=== PATIENT | female | born 1990 | race Caucasian/White ===

== ENCOUNTER 2017-09-23 21:33 | Outpatient (CLI) | payer OTHER, SELFPAY ==
[2017-09-23 22:11] VITALS: BMI 30.4
--- NOTE | 2017-09-29 05:50 | OB.TRI.NOTE ---
History of Present Illness Reason For Visit: R/O LABOR Date of Service: 09/23/17 Gestational age: 38 History of Present Illness: co ctx regualrly for severa lhours and pressure Home Medications Medication Instructions Recorded 1 tab PO QDAY 07/29/17 vitamin,calcium,qfffcido-qacb-tovqi acid tablet Allergies penicillin G Allergy (Mild, Verified 09/23/17 11:01) Hives NST - FHR Rate Baby A Baseline: 150 Variability:: Moderate Accelerations:: 15 x 15 Decelerations:: None NST Reactive:: Yes FHR Category:: Category I Uterine Activity:: ctx q6-8 Impression/Plan no cervical change, dc home labor precautions
== END 2017-09-24 00:10 | disposition home or self-care (01) ==
LOC: WPOUT 22:03 → WP 22:04
PROVIDERS: Family Provider Family Medicine; PCP Family Medicine; Visit Provider Obstetrics & Gynecology
DX: Z34.93 Encounter for supervision of normal pregnancy, unspecified, third trimester (principal)
CPT/HCPCS: 59025; 59050; 99218; G0378

== ENCOUNTER 2017-09-24 06:07 | Inpatient (IN) | payer OTHER, SELFPAY ==
[2017-09-24] MEDS: Lactated Ringers 1,000 ML 50 ML IV ×3 (06:30→12:26)
[2017-09-24 06:31] VITALS: BMI 30.4
[2017-09-24 06:48] LABS: Hematocrit 38.4 % (37-47); Hemoglobin 13.4 g/dl (12.0-15.0); Mean Corp Hgb Conc 34.9 g/gl (32-36); Mean Corpuscular Hgb 30.9 pg (27.0-32.0); Mean Corpuscular Volume 88.5 fL (81-99); Mean Platelet Vol. 9.4 fl (6.2-12.0); Platelet Count 201 K/mm3 (150-450); RBC Distribution Width CV 12.9 % (11.6-14.6); RBC Distribution Width SD 40.6 fl (35.1-43.9); Red Blood Count 4.34 M/mm3 (4.2-5.4); White Blood Count 20.2 K/mm3 (4.4-11.0)
[2017-09-24 06:49] LABS: Scan Indicated on CBC? Y/N NO
--- NOTE | 2017-09-24 14:22 | PCM.HP.OB ---
(1) Active labor at term Status: Acute (2) Large for gestational age fetus affecting management of mother, antepartum Status: Acute Qualifiers: Comment: 95%ile- discussed IOL at 39 weeks and criteria for primary cs. negative diabetes testing. (3) Late care affecting Status: Acute Qualifiers: Comment: first visit at 16 weeks, fu growth US consistent (4) Supervision of normal Status: Acute Qualifiers: Comment: DEVIN 10/04/17 boy Yoan Sukhjinder History Date of Admission: 09/24/17 Gestational age: 38.4 History of this : 26 yo @ 38w4d presents IAL. she has had a complicated by late care and large for gestational age Pertinent Past Medical History: see problem list and history tab- reviewed and no changes needed. labs: see attached lab section Allergies penicillin G Allergy (Mild, Verified 09/23/17 11:01) Hives Current Medications Acetaminophen (Tylenol) 325 - 650 mg PO Q4H PRN PRN PRN Reason: PAIN OR FEVER >100.4F Al Hydroxide/Mg Hydroxide (Mylanta Ii) 15 - 30 ml PO Q4H PRN PRN PRN Reason: INDIGESTION Citric Acid/Sodium Citrate (Bicitra) 30 ml PO UD PRN Lactated Ringer's () 1,000 mls @ 50 mls/hr IV .Q20H VERA Last Admin: 09/24/17 12:26 Dose: 50 mls/hr Naloxone HCl 4 mg/ Dextrose 504 mls @ 0 mls/hr IV PRN PRN; Protocol PRN Reason: TO MAINTAIN RR>10 Nalbuphine HCl (Nubain) 5 - 10 mg IV Q3H PRN PRN PRN Reason: PAIN (4-10/10) Nalbuphine HCl (Nubain) 5 mg IV Q3H PRN PRN Reason: ITCHING Stop: 09/25/17 12:49 Naloxone HCl (Narcan) 0.2 mg IV Q1M PRN PRN Reason: RR<10 AND PT UNRESPONSIVE Stop: 09/25/17 12:49 Ondansetron HCl (Zofran) 4 mg IV Q8H PRN PRN PRN Reason: NAUSEA Promethazine HCl (Phenergan (Ll)) 6.25 - 12.5 mg IV Q4H PRN PRN; Protocol PRN Reason: IF NAUSEA PERSISTS Sodium Chloride () 5 - 15 ml IV UD VERA Last Admin: 09/24/17 07:27 Dose: Not Given Smoking Status: Never smoker Alcohol: None Drug Use: none Number of Fetus(es): 1 - 130-140 moderate variability reactive no decels Review of Systems Constitutional: Denies: Chills, Fever, Weight Change HEENT: Denies: Head Aches, Sinus Congestion, Sinus Drainage Cardiovascular: Denies: Chest Pain, Palpitations Respiratory: Denies: Cough, Shortness of breath at rest, Sputum production Gastrointestinal: Reports: Abdominal Pain. Denies: Nausea, Vomiting Genitourinary: Denies: Dysuria Musculoskeletal: Denies: Joint Pain, Joint Tenderness Skin: Denies: Rash, Wounds Neurological: Denies: Numbness, Tingling, Focal weakness Psychiatric: Denies: Anxiety, Depression, Homicidal Ideations, Suicidal Ideations Hematologic/ Lymphatic: Denies: Easy Bruising, Easy Bleeding Physical Exam General: Alert, Oriented x3 Cardiovascular: Regular rate Lungs: Normal air movement Abdomen: Soft, Gravid Estimated gestational size: Large for gestational age Presentation: Cephalic Cervix Dilation (cm): 5.5 Station: -1 Effacement (%): 80 Assessment/Plan Active and Suspected Problems (Last Reviewed 09/23/17 @ 11:01 by Regina Barker) Active labor at term (Acute) @ 38w4d IAL LGA late care gbs neg plan expectant managment and epi PRN
[2017-09-24] MEDS: Ondansetron 4 MG/2 ML Vial IV (14:23)
--- NOTE | 2017-09-24 14:25 | PCM.PN.BLA ---
Progress Note patient complete and pushing, moderate meconium, fht 120-140 min-moderate variability having early decels and intermittent variable decel, occasional late. category II tracing- overall reassuring and making progress will continue pusing
[2017-09-24] MEDS: Oxytocin 30 units/NS 500 ml 30 UNITS/500 ML IV.SOLN 334 UNITS IV (15:51)
--- NOTE | 2017-09-24 16:12 | PCM.OB.VAG ---
(1) Active labor at term Status: Acute (2) Large for gestational age fetus affecting management of mother, antepartum Status: Acute Qualifiers: Comment: 95%ile- discussed IOL at 39 weeks and criteria for primary cs. negative diabetes testing. (3) Late care affecting Status: Acute Qualifiers: Comment: first visit at 16 weeks, fu growth US consistent (4) Supervision of normal Status: Acute Qualifiers: Comment: DEVIN 10/04/17 boy Yoan Sukhjinder Vaginal Delivery Maternal Presentation: Active Labor 26-year-old at 38-/10 in active labor Amniotic Membrane Rupture Type: Artificial Amniotic Fluid Description: Moderate meconium Final DEVIN: 10/04/17 Final DEVIN Source: US >20 weeks Gestational age: 38 Weeks and 4 Days Date of Procedure: 09/24/17 Pre-Operative Diagnosis: In active labor Post-Operative Diagnosis: Same Surgery/ Procedure Performed: Spontaneous Vaginal Delivery Type of Anesthesia: Epidural Description of Procedure: Patient began pushing and delivered the head in the SYLVIA presentation. The head was delivered atraumatically . The anterior and posterior shoulders delivered without complication followed by the rest of the and the was placed on the maternal abdomen. Delayed cord clamping was employed for approximately 60 seconds. Cord was clamped and cut and gentle traction was applied to the cord and the placenta delivered spontaneously immediately following it was noted to be intact with three-vessel cord. The perineum and vagina were inspected and noted to have a small first-degree laceration that was repaired in the usual fashion with 3-0 Vicryl repeat. EBL was 100 cc. Patient and infant tolerated delivery well. Presentation: SYLVIA
[2017-09-24] MEDS: Oxytocin 30 units/NS 500 ml 30 UNITS/500 ML IV.SOLN 167 UNITS IV (16:25)
[2017-09-24] MEDS: 0.9% Saline Lock 10 ML Syringe IV (17:13)
[2017-09-24 18:27] VITALS: BP 120/60; PULSE 139; RESP 18; TEMP 36.8; O2SAT 100
[2017-09-24 20:50] VITALS: BP 119/74; PULSE 125; RESP 18; TEMP 36.6; O2SAT 100
[2017-09-24 23:40] VITALS: BP 110/63; PULSE 128; RESP 18; TEMP 36.8; TEMP 36.9; O2SAT 97
[2017-09-24] MEDS: Naproxen 250 MG Tablet PO (23:54)
--- NOTE | 2017-09-25 00:09 | NURSING ---
Called Dr. Almanzar and notified pts hr-125 at 1930 and hr-128 with 2345 assessment. pt c/o fever and chills at 2345, temporal temp=98.4, oral temp was 98.2. bp wnl, bleeding is appropriate. Pulse ox ranges 97-100%. encouraged pt to drink more oral fluids. MD states to draw a stat hgb now. if HR remains over 130 then get an EKG.
[2017-09-25 00:29] LABS: Hemoglobin 10.9 g/dl (12.0-15.0)
[2017-09-25 03:45] VITALS: BP 106/62; PULSE 110; RESP 16; TEMP 36.3; O2SAT 97
--- NOTE | 2017-09-25 05:34 | PCM.DCVAG ---
Additional Instructions: If you experience any of the following, contact your healthcare provider. Bleeding that soaks a pad every hour for 2 hours Fever 100.4 or higher Unrelieved incision or abdominal pain Swelling, redness, discharge or bleeding from your incision or episiotomy site Your incision begins to separate Problems urinating (including inability to urinate or burning while urinating). Visual changes Severe headache Flu-like symptoms Pain or redness in one of both of your breasts Pain, warmth, tenderness or swelling in your legs, especially the calf area Frequent nausea and vomiting Symptoms of depression or anxiety If you experience any of the following, call 911 or go to the nearest Emergency Room. Chest pain Problems breathing Seizure activity Partial or complete paralysis of a body part, slurred speech, weakness or drooping of the face, or a sudden inability to walk or hold your balance Allergies/Adverse Reactions: Allergies penicillin G Allergy (Mild, Verified 09/23/17 11:01) Hives Medications to take at Discharge vitamin,calcium,avjkanwn-uouq-lflor acid tablet 1 tab PO QDAY 07/29/17 Please Follow Up With: Cadence Almanzar MD - [phone] When: Call to make an appointment with your doctor in 6 weeks. If you had elevated Blood pressure or 4th degree laceration you will need to be seen in 2 weeks. Primary Care Physician: Clarence Sharif MD [Primary Care Provider] -
--- NOTE | 2017-09-25 05:35 | DCINST_ITS ---
Additional Instructions: If you experience any of the following, contact your healthcare provider. * Bleeding that soaks a pad every hour for 2 hours * Fever 100.4 or higher * Unrelieved incision or abdominal pain * Swelling, redness, discharge or bleeding from your incision or episiotomy site * Your incision begins to separate * Problems urinating (including inability to urinate or burning while urinating) . * Visual changes * Severe headache * Flu-like symptoms * Pain or redness in one of both of your breasts * Pain, warmth, tenderness or swelling in your legs, especially the calf area * Frequent nausea and vomiting * Symptoms of depression or anxiety If you experience any of the following, call 911 or go to the nearest Emergency Room. * Chest pain * Problems breathing * Seizure activity * Partial or complete paralysis of a body part, slurred speech, weakness or drooping of the face, or a sudden inability to walk or hold your balance Allergies/Adverse Reactions: Allergies penicillin G Allergy (Mild, Verified 09/23/17 11:01) Hives Medications to take at Discharge vitamin,calcium,npfatuwi-awvx-zoefx acid tablet 1 tab PO QDAY 07/29/17 Please Follow Up With: Cadence Almanzar MD - [phone] When: Call to make an appointment with your doctor in 6 weeks. If you had elevated Blood pressure or 4th degree laceration you will need to be seen in 2 weeks. Primary Care Physician: Clarence Sharif MD [Primary Care Provider] -
[2017-09-25 08:11] VITALS: BP 108/66; PULSE 101; RESP 14; TEMP 36.5
--- NOTE | 2017-09-25 09:44 | PCM.PN.OB ---
Patient Problems: Active and Suspected Problems (Last Reviewed 09/23/17 @ 11:01 by Regina Barker) Active labor at term (Acute) Subjective: doing well no CP SOB N V - Physical Exam General: Alert, Oriented x3 Vital Signs Temp Pulse Resp BP Pulse Ox 97.7 F L 101 H 14 108/66 97 09/25/17 08:11 09/25/17 08:11 09/25/17 08:11 09/25/17 08:11 09/25/17 03:45 Oxygen Delivery Method Room Air Weight: 194 lb 3.636 oz Body Mass Index (BMI) 30.4 Intake and Output for Last 24 Hours 09/23/17 09/24/17 09/25/17 23:59 23:59 23:59 Intake Total 3798 / 3798 Output Total 3400 / 3400 Balance 398 / 398 Laboratory Tests Past 24 Hrs 09/25/17 00:15 Hgb 10.9 L Assessment/Plan Active and Suspected Problems (Last Reviewed 09/23/17 @ 11:01 by Regina Barker) Active labor at term (Acute) s/p routine care doing well
[2017-09-25] MEDS: Prenatal Vits Tablet 1 TABLET PO (11:03)
[2017-09-25 11:08] VITALS: BP 109/62; PULSE 110; RESP 18; TEMP 36.3
[2017-09-25 16:30] VITALS: BP 121/70; PULSE 115; RESP 14; TEMP 36.7
[2017-09-25 19:55] VITALS: BP 110/68; PULSE 97; RESP 18; TEMP 36.6; O2SAT 97
[2017-09-26 03:00] VITALS: BP 119/78; PULSE 103; RESP 18; TEMP 36.6; O2SAT 98
[2017-09-26] MEDS: Naproxen 250 MG Tablet PO (03:42)
[2017-09-26] MEDS: Senna/Docusate Sodium 1 Tablet PO (03:43)
[2017-09-26 08:53] VITALS: BP 109/65; PULSE 104; RESP 16; TEMP 36.6
--- NOTE | 2017-09-26 09:22 | PCM.PN.OB ---
Patient Problems: Active and Suspected Problems (Last Reviewed 09/23/17 @ 11:01 by Regina Barker) Active labor at term (Acute) Subjective: doing well no complaints - Physical Exam General: Alert, Oriented x3 Vital Signs Temp Pulse Resp BP Pulse Ox 97.8 F 104 H 16 109/65 98 09/26/17 08:53 09/26/17 08:53 09/26/17 08:53 09/26/17 08:53 09/26/17 03:00 Oxygen Delivery Method Room Air Weight: 194 lb 3.636 oz Body Mass Index (BMI) 30.4 Intake and Output for Last 24 Hours 09/24/17 09/25/17 09/26/17 23:59 23:59 23:59 Intake Total 3798 / 3798 Output Total 3400 / 3400 Balance 398 / 398 Assessment/Plan Active and Suspected Problems (Last Reviewed 09/23/17 @ 11:01 by Regina Barker) Active labor at term (Acute) s/p routine care doing well
--- NOTE | 2017-09-26 09:23 | PCM.DCVAG ---
Discharge Diet: No Restrictions Discharge Activity: Return to Normal Activity May resume sexual activity in: 6-8 weeks Weight Bearing Status: Full weight bearing Call your doctor if you observe: Fever of 101 or Higher, Shortness of breath, Chest pain Additional Instructions: If you experience any of the following, contact your healthcare provider. Bleeding that soaks a pad every hour for 2 hours Fever 100.4 or higher Unrelieved incision or abdominal pain Swelling, redness, discharge or bleeding from your incision or episiotomy site Your incision begins to separate Problems urinating (including inability to urinate or burning while urinating). Visual changes Severe headache Flu-like symptoms Pain or redness in one of both of your breasts Pain, warmth, tenderness or swelling in your legs, especially the calf area Frequent nausea and vomiting Symptoms of depression or anxiety If you experience any of the following, call 911 or go to the nearest Emergency Room. Chest pain Problems breathing Seizure activity Partial or complete paralysis of a body part, slurred speech, weakness or drooping of the face, or a sudden inability to walk or hold your balance Allergies/Adverse Reactions: Allergies penicillin G Allergy (Mild, Verified 09/23/17 11:01) Hives Medications to take at Discharge vitamin,calcium,dqufcxlp-guif-kkncc acid tablet 1 tab PO QDAY 07/29/17 Orders to be completed after discharge: Electric breast pump Location: None Selected Please Follow Up With: Cadence Almanzar MD - [phone] When: Call to make an appointment with your doctor in 6 weeks. If you had elevated Blood pressure or 4th degree laceration you will need to be seen in 2 weeks. Primary Care Physician: Clarence Sharif MD [Primary Care Provider] -
--- NOTE | 2017-09-26 09:26 | DCINST_ITS ---
Discharge Diet: No Restrictions Discharge Activity: Return to Normal Activity May resume sexual activity in: 6-8 weeks Weight Bearing Status: Full weight bearing Call your doctor if you observe: Fever of 101 or Higher, Shortness of breath, Chest pain Additional Instructions: If you experience any of the following, contact your healthcare provider. * Bleeding that soaks a pad every hour for 2 hours * Fever 100.4 or higher * Unrelieved incision or abdominal pain * Swelling, redness, discharge or bleeding from your incision or episiotomy site * Your incision begins to separate * Problems urinating (including inability to urinate or burning while urinating) . * Visual changes * Severe headache * Flu-like symptoms * Pain or redness in one of both of your breasts * Pain, warmth, tenderness or swelling in your legs, especially the calf area * Frequent nausea and vomiting * Symptoms of depression or anxiety If you experience any of the following, call 911 or go to the nearest Emergency Room. * Chest pain * Problems breathing * Seizure activity * Partial or complete paralysis of a body part, slurred speech, weakness or drooping of the face, or a sudden inability to walk or hold your balance Allergies/Adverse Reactions: Allergies penicillin G Allergy (Mild, Verified 09/23/17 11:01) Hives Medications to take at Discharge vitamin,calcium,ptiwidwl-kqle-gujah acid tablet 1 tab PO QDAY 07/29/17 Orders to be completed after discharge: Electric breast pump Location: None Selected Please Follow Up With: Cadence Almanzar MD - [phone] When: Call to make an appointment with your doctor in 6 weeks. If you had elevated Blood pressure or 4th degree laceration you will need to be seen in 2 weeks. Primary Care Physician: Clarence Sharif MD [Primary Care Provider] -
[2017-09-26 12:00] VITALS: BP 95/68; PULSE 94; RESP 16; TEMP 36.8
== END 2017-09-26 14:05 | disposition home or self-care (01) | DRG 775 ==
PROVIDERS: Admitting Provider Obstetrics & Gynecology; Family Provider Family Medicine; PCP Family Medicine; Visit Provider Obstetrics & Gynecology
DX: O76 Abnormality in fetal heart rate and rhythm complicating labor and delivery (principal); O36.63X0 Maternal care for excessive fetal growth, third trimester, not applicable or unspecified; O70.0 First degree perineal laceration during delivery; Z37.0 Single live birth; Z3A.38 38 weeks gestation of pregnancy
CPT/HCPCS: 59050; 85018; 85027; 86850; 86900; 99218; J7120; A4216; G0378; J2405

== ENCOUNTER → 2018-04-30 08:36 | Outpatient (CLI) | payer OTHER, SELFPAY ==
[2018-04-30 10:47] LABS: Cholesterol 184 mg/dL (200); Glucose 94 mg/dL (74-106); High Density Lipoprotein 66 mg/dL; Triglycerides 52 mg/dL; Very Low Density Lipoprotein 10 mg/dL (5-40)
== END ==
PROVIDERS: Family Provider Family Medicine; PCP Family Medicine; Visit Provider Family Medicine
DX: Z00.00 Encounter for general adult medical examination without abnormal findings (principal)
CPT/HCPCS: 36415; 80061; 82947

== ENCOUNTER → 2019-04-09 08:34 | Outpatient (CLI) | payer OTHER, SELFPAY ==
[2017-11-05 10:26] VITALS: BMI 30.4
== END ==
PROVIDERS: Family Provider Family Medicine; PCP Family Medicine; Referring Provider Family Medicine; Visit Provider Family Medicine
DX: Z00.00 Encounter for general adult medical examination without abnormal findings (principal)

== ENCOUNTER → 2019-05-24 15:02 | Outpatient (CLI) | payer OTHER, SELFPAY ==
[2019-05-24 14:49] VITALS: BMI 30.4
[2019-05-24 21:07] LABS: hCG Titer Quant., Serum > 200000 mIU/mL (1-3)
== END ==
PROVIDERS: Family Provider Family Medicine; PCP Family Medicine; Referring Provider Obstetrics & Gynecology; Visit Provider Obstetrics & Gynecology
DX: Z34.80 Encounter for supervision of other normal pregnancy, unspecified trimester (principal)
CPT/HCPCS: 36415; 84702; 85025; 86592; 86703; 86762; 86850; 86900; 86901

== ENCOUNTER 2019-06-04 16:55 | Day surgery (SDC) | payer OTHER, SELFPAY ==
[2019-05-31 08:15] VITALS: BMI 30.4
[2019-06-04] VITALS (7 sets, daily range): BP systolic 106–161; BP diastolic 71–88; PULSE 75–112; RESP 14–16; TEMP 36.6–37.2; O2SAT 99–100; BMI 25.9
--- NOTE | 2019-06-04 07:45 | POC_PTH ---
PATIENT: MICAELA LANGFORD LOC: [facility] [place] U#:[id number] AGE/SX: 28/F ROOM: RE06/04/[address]: Dr. Cadence Almanzar MD : 1990 BED: DIS: 06/04/2019 SPEC #: [id number] RECD: 06/07/19 12:17 STATUS: SUZAN RENicole #: [id number] BINA: 06/04/19 07:[address]: Cadence Almanzar DEPT: SURGICAL PATHOLOGY RECD BY: Ozzie Oneal ENTERED: 06/07/19 13:33 SP TYPE: PROD CONC OTHR DR: Dr. Ronald Michael, DO Tissues: Product of conception, NOS Procedures: Surgery Specimen Level IV HEADER OPERATION: Dilation and curettage, suction PRE-OP DIAGNOSIS: Miscarriage TISSUE SUBMITTED: Products of conception, rule out molar MICROSCOPIC DIAGNOSIS Products of conception, D & C: [place]id[place], gestational endometrium and immature chorionic villi with extensive hydropic changes. See comment. NIKOLAI:jayde 06/09/19 COMMENT Significant trophoblastic hyperplasia is not seen. Correlation with clinical, laboratory studies and appropriate follow up are necessary. This case was reviewed and diagnosis discussed with Dr. Almanzar's nurse on 06/15/19 at 9:05 a.m. Case has been reviewed in consultation with Dr. Amador who concurs with the above diagnosis. IDC:AM MICROSCOPIC DESCRIPTION Slides are reviewed. GROSS DESCRIPTION Received in fixative is one container labeled with the patient's name and designated products of conception. The specimen consists of multiple irregular fragments of pink-red soft tissue that in aggregate measure 7.5 x 8 x 3.5 cm. tissue is not identified. Building Associate tissue is submitted in two cassettes. / NIKOLAI:jayde 06/07/19 More tissue is submitted in four more cassettes, 3-6. / NIKOLAI:jayde 06/08/19 TC:5 CPT: 06844
--- NOTE | 2019-06-04 18:11 | US_ITS ---
STUDY: FIRST TRIMESTER OBSTETRICAL ULTRASOUND REASON FOR EXAM: Female, 28 years old incomplete miscarriage, concern for partial molar LMP: 04/17/2019 TECHNIQUE: Transvaginal TECHNICAL QUALITY: Adequate. PRIOR ULTRASOUND: 09/08/2017 FINDINGS: There is no demonstrated intrauterine gestational sac. There is no demonstrated yolk sac. The placenta is non-visualized. There is no demonstrated embryo ( pole). The estimated gestation age (EGA) by LMP is 6 weeks, 6 days. The estimated date of delivery (DEVIN) by LMP is 12/26/2019. The uterus measures 9.8 x 9.2 x 6.3 cm.. There is no demonstrated uterine fibroid. The cervix is closed. There is a heterogeneous endometrial mass measuring 4.0 cm. No blood flow is seen within this structure. Multiple tiny cystic foci are seen within. Peripheral myometrial flow is noted. The right ovary measures 2.9 x 2.2 x 1.7 cm. There is no right ovarian cyst. There is no visualized right adnexal mass or complex lesion. The left ovary measures 2.1 x 2.1 x 1.1 cm.. There is no left ovarian cyst. There is no visualized left adnexal mass or complex lesion. There is minimal fluid in the cul de sac. US/Transvaginal w/Preg US IMPRESSION: Heterogeneous endometrial mass measuring 4.0 cm. No internal blood flow is noted. There is surrounding myometrial vascularity. 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 Correlation with beta hCG levels is recommended. Electronically Signed: Davis Rodas MD at 19:39 EDT , Service support ,
--- NOTE | 2019-06-04 18:14 | ED.DCSUM_ITS ---
History of Present Illness Chief Complaint: Vag Bleeding Informant: Patient Onset: Days Context: Gradual Onset Timing: Continuous Narrative: Patient is a 28-year-old female with [facility] 8 weeks status post 2 doses of Cytotec. Patient is presenting with continued bleeding and abdominal discomfort as well as abdominal bloating. Patient took her first dose of Cytotec 9 days ago. On repeat ultrasound she did pass the products of conception but still had a lot of clots in her uterus and a thickened uterine lining. She took a second dose of Cytotec 5 days ago. Since then patient has had continued bleeding approximately a pad every 3-4 hours with large clots. She is no she is having significant cramping in her lower abdomen and now feels bloated in her entire belly. She called her LOSS PREVENTION SUPERVISOR, Dr. Ronald Nick and was instructed to come to the emergency room for further evaluation. Patient has associated nausea but no vomiting. She denies any fever but does report chills. She has some slight lightheadedness. She denies any other complaints at this time. Chart review shows that patient Rh+. This was her second . Past Medical History - Allergies and Home Meds Allergies/Adverse Reactions: Allergies penicillin G Allergy (Mild, Verified 06/04/19 16:59) Hives Past Medical History: None Surgical History: noncontributory Smoking Status: Never smoker Review of Systems All systems negative except as indicated General: Reports: Chills Gastrointestinal: Reports: Abdominal pain, Nausea Genitourinary: Reports: - - Heavy vaginal bleeding, recent miscarriage Physical Exam Vital Signs/Narrative: Vital Signs Temp Pulse Resp BP Pulse Ox 06/04/19 17:24 89 14 127/83 H 100 06/04/19 16:56 99.0 F 112 H 16 161/84 H 100 Inital Vital Signs reviewed: Yes General: Well nourished, Well developed, No Acute Distress Head: Normocephalic, Atraumatic Eyes: Perrl, EOMI ENT: Moist mucous membranes, No rhinorrhea Neck: Supple, Nontender Cardiovascular: Regular rate, Regular rhythm, No murmurs Respiratory: No distress, CTA bilaterally, Chest nontender Abdomen: Soft, Nondistended, Normal bowel sounds, Tender - suprapubic . Negative for: Guarding, Rebound tenderness Back: Nontender, Normal Inspection Extremities: Nontender, No edema Skin: Normal color, No rash Neurological: Alert, Oriented x3, Cranial nerves II-XII grossly intact, Normal Strength, Normal Sensation Psychological: Normal affect, Normal Mood Diagnostic/Tx/Re-eval Clinical Impression(s) from Imaging Studies Obstetrics Ultrasound 06/04/19 18:11 IMPRESSION: Heterogeneous endometrial mass measuring 4.0 cm. No internal blood flow is noted. There is surrounding myometrial vascularity. 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 Correlation with beta hCG levels is recommended. Electronically Signed: Davis Rodas MD at 19:39 EDT , Service support , Laboratory Data 06/04/19 06/04/19 06/04/19 18:10 18:10 18:10 WBC 10.5 RBC 4.00 L Hgb 12.2 Hct 36.8 L MCV 92.0 MCH 30.5 MCHC 33.2 RDW Std Deviation 42.1 RDW Coeff of Ab 12.4 Plt Count 233 MPV 9.3 Immature Gran % (Auto) 0.400 Neut % (Auto) 77.0 H Lymph % (Auto) 14.1 L [place] % (Auto) 7.5 Eos % (Auto) 0.7 Baso % (Auto) 0.3 Absolute Neuts (auto) 8.1 H Absolute Lymphs (auto) 1.48 Nucleated RBC % 0 HCG, Quant 46040 H Serum , Qual Y Urine Color Urine Clarity Urine pH Ur Specific Randall Urine Protein Urine Glucose (UA) Urine Ketones Urine Occult Blood Urine Nitrite Urine Bilirubin Urine Urobilinogen Ur Leukocyte Esterase Urine RBC Urine WBC Ur Squamous Epith Cells Urine Bacteria Urine Mucus 06/04/19 18:20 WBC RBC Hgb Hct MCV MCH MCHC RDW Std Deviation RDW Coeff of Ab Plt Count MPV Immature Gran % (Auto) Neut % (Auto) Lymph % (Auto) [place] % (Auto) Eos % (Auto) Baso % (Auto) Absolute Neuts (auto) Absolute Lymphs (auto) Nucleated RBC % HCG, Quant Serum , Qual Urine Color Yellow Urine Clarity Clear Urine pH 6.5 Ur Specific Randall 1.020 Urine Protein 30 H Urine Glucose (UA) Normal Urine Ketones 5 H Urine Occult Blood 250 H Urine Nitrite Negative Urine Bilirubin Negative Urine Urobilinogen Normal Ur Leukocyte Esterase 500 H Urine RBC 0-5 SEEN Urine WBC 5-10 SEEN Ur Squamous Epith Cells 0-5 SEEN Urine Bacteria 1+ Urine Mucus 0 SEEN - Medical Decision Making Patient is evaluated for continued vaginal bleeding after miscarriage induced by Cytotec. She has recurrent nausea and now feels more bloated. Patient's first quant was exceptionally high (greater than 200,000) 2 weeks ago. Repeat is now around 30,000. Her hemoglobin is stable and patient does not have symptoms consistent with acute blood loss. Discussed the case with her LOSS PREVENTION SUPERVISOR, Dr. Ronald Nick who recommends a repeat ultrasound and will evaluate the patient in the ER. Ultrasound is suspicion for a partial molar with retained products of conception versus complete molar . Patient will be taken to the OR for D&C and further management by obstetrics. Patient is agreeable with this. She is given fluids, Zofran and Toradol in the emergency room. Patient is stable at time of disposition. ED Disposition - Plan for ED Patient: Disposition: Acute Care Hospital [facility] Diagnosis: Incomplete with delayed or excessive hemorrhage
[2019-06-04 18:25] LABS: Absolute Lymphocyte Count 1.48 X10^3/uL (0.83-4.51); Absolute Neutrophil Count 8.1 X10^3/uL (2.0-7.7); Basophil# 0.03 X10^3/uL; Basophil% 0.3 % (0-1); Eosinophil# 0.07 X10^3/uL; Eosinophils% 0.7 % (0-5); Hematocrit 36.8 % (37-47); Hemoglobin 12.2 g/dL (12.0-15.0); Lymphocyte # 1.48 X10^3/ul (4.0); Lymphocyte % 14.1 % (19-41); Mean Corp Hgb Conc 33.2 g/dL (32-36); Mean Corpuscular Hgb 30.5 pg (27.0-32.0); Mean Platelet Vol. 9.3 fl (6.2-12.0); Monocyte# 0.78 X10^3/uL; Monocyte% 7.5 % (0-10); NRBC Flagged by Analyzer 0 % (0-5); Neutrophil # 8.06 X10^3/uL (2.7-7.7); Platelet Count 233 K/mm3 (150-450); RBC Distribution Width CV 12.4 % (11.6-14.6); RBC Distribution Width SD 42.1 fl (35.1-43.9); White Blood Count 10.5 K/mm3 (4.4-11.0)
[2019-06-04] MEDS: 0.9% Normal Saline 1,000 ML 1000 ML IV (18:31)
[2019-06-04] MEDS: Ketorolac 15 MG/ML Vial IV (18:31)
[2019-06-04] MEDS: Ondansetron 4 MG/2 ML Vial IV (18:42)
[2019-06-04 18:45] LABS: Internal QC Validated? YES +Cl - CLEAR BKGD
[2019-06-04 18:50] LABS: Mucous, Urine 0 SEEN /hpf (<or=2+)
[2019-06-04 19:00] LABS: Color, Urine Yellow (Yellow); Glucose, Dipstick Normal (Normal); Ketone-Dipstick 5 mg/dl (Negative); Leukocyte Esterase-Dipstick 500 /ul (Negative); Nitrite-Dipstick Negative (Negative); Occult Blood-Urine 250 /ul (Negative); Protein-Dipstick 30 mg/dl (Negative); Urine Bilirubin Dipstick Negative (Negative); Urine Clarity Clear (Clear); Urine Urobilinogen Normal (Normal); Urine pH 6.5 (5.0 - 8.0)
[2019-06-04 19:09] LABS: White Blood Cells 5-10 SEEN /hpf (0-5)
[2019-06-04 19:10] LABS: Bacteria 1+ /hpf (None Seen); Red Blood Cells-Urine 0-5 SEEN /hpf (0-5); Squamous Epithelial Cells - UA 0-5 SEEN /hpf (5-10)
--- NOTE | 2019-06-04 19:41 | ED.RN ---
DR COSTELLO NOTIFIED OF HCG LEVEL
--- NOTE | 2019-06-04 19:45 | PCM.HP.OB ---
- Problem List (1) Incomplete with delayed or excessive hemorrhage Status: Acute Comment: 06/04- d and c, clinically suspect partial mole await pathology History Date of Admission: 09/24/17 Final DEVIN Source: US >20 weeks History of this : This is a 28 year-old, at 8 weeks gestational age presents with persistent bleeding after miscarriage. she had an ultrasound friday that showed complete passage of the sac and a 2 cm lining and then today bleeding has increased throughout the week and her lining is 4.5 cm Medical History: Medical History (Last Updated 05/31/19 @ 08:10 by Regina Barker) No significant medical problems Spontaneous O03.9 Cytotec Surgical History: Surgical History (Last Reviewed 05/31/19 @ 08:09 by Regina Barker) H/O knee surgery Z98.890 Allergies penicillin G Allergy (Mild, Verified 06/04/19 16:59) Hives Home Medications: Home Medications vitamin,calcium,fsvdybsr-mugt-bnzfb acid tablet 1 tab PO QDAY 07/29/17 ondansetron HCl 4 mg tablet 4 mg PO Q4H #10 tab 05/31/19 oxycodone-acetaminophen 5 mg-325 mg tablet 1 tab PO Q4H PRN #20 tab 05/31/19 oxycodone-acetaminophen 5 mg-325 mg tablet 1 tab PO Q4H PRN 4 Days #20 tab 05/31/19 Smoking Status: Never smoker Alcohol: None History Past Pregnancies: Past Pregnancies Delivery Date Name GA/Weeks Outcome Route Weight Gender Labor Length Anesthesia Delivery Location Provider FOB Review of Systems Constitutional: Reports: Malaise, Fatigue. Denies: Fever Eyes: Denies: Blurred vision, Vision Change HEENT: Denies: Head Aches, Visual Changes Cardiovascular: Denies: Chest Pain, Palpitations Respiratory: Denies: Cough, Shortness of Breath, Wheezing Gastrointestinal: Reports: Abdominal Pain, Nausea, - - bloating. Denies: Diarrhea, Vomiting Genitourinary: Denies: Dysuria, Hematuria Gynecological: Reports: Vaginal bleeding Musculoskeletal: Denies: Joint Pain, Muscle pain Skin: Denies: Lesions, Rash Neurological: Denies: Blurred vision, Focal weakness, Headaches Psychiatric: Denies: Anxiety, Depression Endocrine: Denies: Heat/ Cold Intolerance Hematologic/ Lymphatic: Denies: Easy Bruising, Easy Bleeding Physical Exam Vitals: Vital Signs Temp Pulse Resp BP Pulse Ox 99.0 F 89 14 127/83 H 100 06/04/19 16:56 06/04/19 17:24 06/04/19 17:24 06/04/19 17:24 06/04/19 17:24 General: Alert, Cooperative, No apparent distress HEENT: Atraumatic, Normocephalic. Negative for: Thyromegaly, Lymphadenopathy Cardiovascular: Regular rate Lungs: Normal air movement Abdomen: Soft, Non Tender, Distended Neurological: Deep Tendon Reflexes 2+/4 and Symmetrical, Neuro grossly intact. Negative for: Clonus OSTEOPATHY DOCTOR: Normal external genitalia. Negative for: Vulvar lesions Assessment/Plan All Active Problems (Last Updated 05/31/19 @ 08:10 by Regina Barker) Incomplete with delayed or excessive hemorrhage (Acute) Complete (Acute) Missed (Resolved) (Resolved) Supervision of other normal (Resolved) Threatened (Ruled-out) This is a 28 year-old, at 8 weeks gestational age with retained POC after incomplete Ab possible partial molar recommend suction d and c. After discussing the patient's diagnosis and treatment plan options, patient wishes to proceed with surgical management. I have discussed with the patient the risks, benefits, and alternatives of the procedure which include but are not limited to risks of anesthesia, bleeding, infection, possible damage to bowel, bladder, or surrounding vasculature which could lead to additional surgery to evaluate any complications. Patient agrees to procedure and wishes to proceed.
--- NOTE | 2019-06-04 19:51 | DCINST_ITS ---
Discharge Diet: No Restrictions Discharge Activity: Return to Normal Activity, May Shower, May Take a Tub Bath Allergies/Adverse Reactions: Allergies penicillin G Allergy (Mild, Verified 06/04/19 16:59) Hives Medications to take at Discharge vitamin,calcium,fihpaimy-psrn-honbp acid tablet 1 tab PO QDAY 07/29/17 ondansetron HCl 4 mg tablet 4 mg PO Q4H #10 tab 05/31/19 oxycodone-acetaminophen 5 mg-325 mg tablet 1 tab PO Q4H PRN #20 tab 05/31/19 oxycodone-acetaminophen 5 mg-325 mg tablet 1 tab PO Q4H PRN 4 Days #20 tab 05/31/19 Primary Care Physician: Ronald Michael DO [Primary Care Provider] - Test Results: Test results from this visit will be discussed in further detail at your follow- up appointment, if applicable. Please Follow Up With: Cadence Almanzar MD - [phone]
--- NOTE | 2019-06-04 19:51 | PCM.OPRPT ---
Problem List (1) Incomplete with delayed or excessive hemorrhage Status: Acute Comment: 06/04- d and c, clinically suspect partial mole await pathology Report of Operation Date of Procedure: 06/04/19 Pre-Operative Diagnosis: retained poc Post-Operative Diagnosis: same Surgery/Procedure Performed:: suction d and c Description of Surgical Findings:: suction d and c Type of Anesthesia:: Local MAC Special Medications: methergine cytotec ancef Specimen's removed: poc Drains: none Estimated Blood Loss (mL): 200 Fluids Replaced: crystalloid Description of Procedure: Patient was taken to the operating room and placed under MAC local anesthesia. She was prepped and draped in the normal sterile fashion the dorsal lithotomy position. Bladder was drained of clear urine and anterior lip of the cervix was grasped and the uterus sounded to 11. Cervix was progressively dilated to allow passage of a 11 mm suction curette. Progressive passes were made removing the retained products of conception without complication. Sharp curettage confirmed complete removal of the retained products. All instruments were removed from the vagina and excellent hemostasis was noted and the patient was taken to recovery in stable condition. Grafts/Implants Used: none - Complications none - Admit VTE Documentation VTE Present on Admission: No Multi Select Codes - Urinary/Genital Urinary/Genital CPT Codes: 59163 Trmt of incomplete Ab, any TM
[2019-06-04] MEDS: Methylergonovine 0.2 MG/ML Ampul IM (20:02)
[2019-06-04] MEDS: miSOPROStol 200 MCG Tablet (20:03)
[2019-06-04] MEDS: HYDROcodone Bitartrate/Apap 5/325 Tablet PO (20:48)
[2019-06-05 02:13] LABS: Pregnancy, Serum, hCG Quali. POSITIVE Negative
== END 2019-06-04 21:13 | disposition home or self-care (01) ==
LOC: ED 17:54 → SDC 19:13 → AC 19:14
PROVIDERS: Emergency Provider Emergency Medicine; Family Provider Family Medicine; PCP Family Medicine; Visit Provider Obstetrics & Gynecology
PROC: (CPT 59812; principal; 2019-06-04 07:45)
DX: O03.1 Delayed or excessive hemorrhage following incomplete spontaneous abortion (principal); Z88.0 Allergy status to penicillin
CPT/HCPCS: 01965; 59812; 76817; 81001; 84702; 84703; 85025; 88305; 99281; J2405

== ENCOUNTER → 2019-06-16 09:00 | Outpatient (CLI) | payer OTHER, SELFPAY ==
[2019-06-04 16:56] VITALS: BMI 25.9
[2019-06-16 10:40] LABS: hCG Titer Quant., Serum 201 mIU/mL (1-3)
== END ==
PROVIDERS: Family Provider Family Medicine; PCP Family Medicine; Referring Provider Family Medicine; Visit Provider Obstetrics & Gynecology
DX: O02.1 Missed abortion (principal)
CPT/HCPCS: 36415; 84702

== ENCOUNTER → 2019-06-24 09:48 | Outpatient (CLI) | payer OTHER, SELFPAY ==
[2019-06-17 08:11] VITALS: BMI 25.9
[2019-06-24 12:25] LABS: hCG Titer Quant., Serum 40 mIU/mL (1-3)
== END ==
PROVIDERS: Family Provider Family Medicine; PCP Family Medicine; Visit Provider Obstetrics & Gynecology
DX: O03.1 Delayed or excessive hemorrhage following incomplete spontaneous abortion (principal); Z3A.00 Weeks of gestation of pregnancy not specified
CPT/HCPCS: 36415; 84702

== ENCOUNTER → 2019-07-01 09:29 | Outpatient (CLI) | payer OTHER, SELFPAY ==
[2019-06-17 08:11] VITALS: BMI 25.9
[2019-07-01 11:14] LABS: hCG Titer Quant., Serum 16 mIU/mL (1-3)
== END ==
PROVIDERS: Family Provider Family Medicine; PCP Family Medicine; Referring Provider Family Medicine; Visit Provider Obstetrics & Gynecology
DX: O03.1 Delayed or excessive hemorrhage following incomplete spontaneous abortion (principal)
CPT/HCPCS: 36415; 84702

== ENCOUNTER → 2019-07-07 11:03 | Outpatient (CLI) | payer OTHER, SELFPAY ==
[2019-06-17 08:11] VITALS: BMI 25.9
[2019-07-07 12:36] LABS: hCG Titer Quant., Serum 10 mIU/mL (1-3)
== END ==
PROVIDERS: Family Provider Family Medicine; PCP Family Medicine; Referring Provider Family Medicine; Visit Provider Obstetrics & Gynecology
DX: O03.1 Delayed or excessive hemorrhage following incomplete spontaneous abortion (principal)
CPT/HCPCS: 36415; 84702

== ENCOUNTER → 2019-07-15 10:49 | Outpatient (CLI) | payer OTHER, SELFPAY ==
[2019-06-17 08:11] VITALS: BMI 25.9
[2019-07-15 13:04] LABS: hCG Titer Quant., Serum 226 mIU/mL (1-3)
== END ==
PROVIDERS: Family Provider Family Medicine; PCP Family Medicine; Referring Provider Family Medicine; Visit Provider Obstetrics & Gynecology
DX: O03.1 Delayed or excessive hemorrhage following incomplete spontaneous abortion (principal)
CPT/HCPCS: 36415; 84702

== ENCOUNTER → 2019-07-17 11:01 | Outpatient (CLI) | payer OTHER, SELFPAY ==
[2019-06-17 08:11] VITALS: BMI 25.9
[2019-07-17 12:11] LABS: hCG Titer Quant., Serum 654 mIU/mL (1-3)
== END ==
PROVIDERS: Family Provider Family Medicine; PCP Family Medicine; Referring Provider Obstetrics & Gynecology; Visit Provider Obstetrics & Gynecology
DX: O03.1 Delayed or excessive hemorrhage following incomplete spontaneous abortion (principal)
CPT/HCPCS: 36415; 84702

== ENCOUNTER → 2019-07-19 13:07 | Outpatient (CLI) | payer OTHER, SELFPAY ==
[2019-06-17 08:11] VITALS: BMI 25.9
--- NOTE | 2019-07-19 13:48 | US_ITS ---
STUDY: FIRST TRIMESTER OBSTETRICAL ULTRASOUND REASON FOR EXAM: Female, 28 years old. Rising beta hCG following DTC procedure. LMP: Unknown. TECHNIQUE: Transabdominal and Transvaginal PRIOR ULTRASOUND: None. FINDINGS: There is fluid in the endometrial canal which may represent an early gestational sac. However, no yolk sac or pole is identified. The endometrium is otherwise within normal limits. The uterus measures 7.1 x 6.5 x 4.8 cm. The endometrium measures 4 mm.. There is no demonstrated uterine fibroid. The cervix is closed. The right ovary measures 2.7 x 1.5 x 1.0 cm. There is no right ovarian cyst. There is no visualized right adnexal mass or complex lesion. The left ovary measures 2.8 x 2.2 x 1.9 cm. There is no left ovarian cyst. There is no visualized left adnexal mass or complex lesion. There is no fluid in the cul de sac. US/Transvaginal Non- IMPRESSION: Fluid in the endometrial canal which may represent an early gestational sac. However, no yolk sac or pole is identified. These findings may be due to an early intrauterine gestation, a spontaneous or a nonvisualized ectopic . If the history of a recent DTC procedure is accurate, then this likely represents postoperative fluid. There is no evidence of retained products of conception. There is no evidence of a molar . Follow-up sonography in beta hCG levels are recommended. Electronically Signed: Toribio Rawls, at 16:53 EST Tel , Service support ,
--- NOTE | 2019-07-19 13:48 | US_ITS ---
STUDY: FIRST TRIMESTER OBSTETRICAL ULTRASOUND REASON FOR EXAM: Female, 28 years old. Rising beta hCG following DTC procedure. LMP: Unknown. TECHNIQUE: Transabdominal and Transvaginal PRIOR ULTRASOUND: None. FINDINGS: There is fluid in the endometrial canal which may represent an early gestational sac. However, no yolk sac or pole is identified. The endometrium is otherwise within normal limits. The uterus measures 7.1 x 6.5 x 4.8 cm. The endometrium measures 4 mm.. There is no demonstrated uterine fibroid. The cervix is closed. The right ovary measures 2.7 x 1.5 x 1.0 cm. There is no right ovarian cyst. There is no visualized right adnexal mass or complex lesion. The left ovary measures 2.8 x 2.2 x 1.9 cm. There is no left ovarian cyst. There is no visualized left adnexal mass or complex lesion. There is no fluid in the cul de sac. US/Pelvic (Non ) IMPRESSION: Fluid in the endometrial canal which may represent an early gestational sac. However, no yolk sac or pole is identified. These findings may be due to an early intrauterine gestation, a spontaneous or a nonvisualized ectopic . If the history of a recent DTC procedure is accurate, then this likely represents postoperative fluid. There is no evidence of retained products of conception. There is no evidence of a molar . Follow-up sonography in beta hCG levels are recommended. Electronically Signed: Toribio Rawls, at 16:53 EST Tel , Service support ,
[2019-07-19 14:49] LABS: hCG Titer Quant., Serum 1324 mIU/mL (1-3)
== END ==
PROVIDERS: Family Provider Family Medicine; PCP Family Medicine; Referring Provider Obstetrics & Gynecology; Visit Provider Obstetrics & Gynecology
DX: O03.1 Delayed or excessive hemorrhage following incomplete spontaneous abortion (principal)
CPT/HCPCS: 36415; 76830; 76856; 84702

== ENCOUNTER → 2019-07-25 11:45 | Outpatient (CLI) | payer OTHER, SELFPAY ==
[2019-06-17 08:11] VITALS: BMI 25.9
[2019-07-25 12:04] LABS: Hematocrit 42.8 % (37-47); Mean Corp Hgb Conc 32.7 g/dL (32-36); Mean Corpuscular Hgb 30.5 pg (27.0-32.0); Mean Corpuscular Volume 93.2 fL (81-99); Mean Platelet Vol. 8.8 fl (6.2-12.0); Platelet Count 272 K/mm3 (150-450); RBC Distribution Width CV 12.4 % (11.6-14.6); RBC Distribution Width SD 42.7 fl (35.1-43.9); Red Blood Count 4.59 M/mm3 (4.2-5.4); White Blood Count 8.2 K/mm3 (4.4-11.0)
[2019-07-25 12:42] LABS: hCG Titer Quant., Serum 1866 mIU/mL (1-3)
== END ==
PROVIDERS: Family Provider Family Medicine; PCP Family Medicine; Visit Provider Obstetrics & Gynecology
DX: O03.9 Complete or unspecified spontaneous abortion without complication (principal); Z3A.00 Weeks of gestation of pregnancy not specified
CPT/HCPCS: 36415; 84702; 85027

== ENCOUNTER → 2019-07-27 15:20 | Outpatient (CLI) | payer OTHER, SELFPAY ==
[2019-07-27 09:00] VITALS: BMI 25.9
[2019-07-27 17:50] LABS: hCG Titer Quant., Serum 596 mIU/mL (1-3)
== END ==
PROVIDERS: Family Provider Family Medicine; PCP Family Medicine; Referring Provider Family Medicine; Visit Provider Obstetrics & Gynecology
DX: O20.0 Threatened abortion (principal); Z3A.00 Weeks of gestation of pregnancy not specified
CPT/HCPCS: 36415; 84702

== ENCOUNTER → 2019-08-03 12:59 | Outpatient (CLI) | payer OTHER, SELFPAY ==
[2019-06-17 08:11] VITALS: BMI 25.9
[2019-07-27 09:00] VITALS: BMI 25.9
[2019-08-03 14:32] LABS: hCG Titer Quant., Serum 56 mIU/mL (1-3)
== END ==
LOC: LAB.FUTURE 13:01 → MTLAB 13:11
PROVIDERS: Family Provider Family Medicine; PCP Family Medicine; Referring Provider Obstetrics & Gynecology; Visit Provider Obstetrics & Gynecology
DX: O03.9 Complete or unspecified spontaneous abortion without complication (principal)
CPT/HCPCS: 36415; 84702

== ENCOUNTER → 2019-08-10 16:04 | Outpatient (CLI) | payer OTHER, SELFPAY ==
[2019-07-27 09:00] VITALS: BMI 25.9
[2019-08-10 17:57] LABS: hCG Titer Quant., Serum 19 mIU/mL (1-3)
== END ==
PROVIDERS: Family Provider Family Medicine; PCP Family Medicine; Referring Provider Family Medicine; Visit Provider Obstetrics & Gynecology
DX: O03.9 Complete or unspecified spontaneous abortion without complication (principal)
CPT/HCPCS: 36415; 84702

== ENCOUNTER → 2019-08-19 11:50 | Outpatient (CLI) | payer OTHER, SELFPAY ==
[2019-07-27 09:00] VITALS: BMI 25.9
[2019-08-19 13:12] LABS: hCG Titer Quant., Serum 27 mIU/mL (1-3)
== END ==
PROVIDERS: Nurse Practitioner Women's Health; Family Provider Family Medicine; PCP Family Medicine; Visit Provider Obstetrics & Gynecology
DX: O03.9 Complete or unspecified spontaneous abortion without complication (principal); Z3A.00 Weeks of gestation of pregnancy not specified
CPT/HCPCS: 36415; 84702

== ENCOUNTER → 2019-08-21 10:54 | Outpatient (CLI) | payer OTHER, SELFPAY ==
[2019-07-27 09:00] VITALS: BMI 25.9
[2019-08-21 12:39] LABS: hCG Titer Quant., Serum 29 mIU/mL (1-3)
== END ==
PROVIDERS: Family Provider Family Medicine; PCP Family Medicine; Referring Provider Obstetrics & Gynecology; Visit Provider Obstetrics & Gynecology
DX: O03.9 Complete or unspecified spontaneous abortion without complication (principal)
CPT/HCPCS: 36415; 84702

== ENCOUNTER → 2019-08-27 13:40 | Outpatient (CLI) | payer OTHER, SELFPAY ==
[2019-07-27 09:00] VITALS: BMI 25.9
[2019-08-27 15:55] LABS: hCG Titer Quant., Serum 19 mIU/mL (1-3)
== END ==
PROVIDERS: Family Provider Family Medicine; PCP Family Medicine; Referring Provider Family Medicine; Visit Provider Obstetrics & Gynecology Gynecologic Oncology
DX: O01.9 Hydatidiform mole, unspecified (principal)
CPT/HCPCS: 36415; 84702

== ENCOUNTER → 2019-09-02 15:55 | Outpatient (CLI) | payer OTHER, SELFPAY ==
[2019-07-27 09:00] VITALS: BMI 25.9
[2019-09-02 17:54] LABS: hCG Titer Quant., Serum 6 mIU/mL (1-3)
== END ==
PROVIDERS: Family Provider Family Medicine; PCP Family Medicine; Referring Provider Family Medicine; Visit Provider Obstetrics & Gynecology Gynecologic Oncology
DX: O01.9 Hydatidiform mole, unspecified (principal)
CPT/HCPCS: 36415; 84702

== ENCOUNTER → 2019-09-08 16:26 | Outpatient (CLI) | payer OTHER, SELFPAY ==
[2019-07-27 09:00] VITALS: BMI 25.9
[2019-09-08 18:28] LABS: hCG Titer Quant., Serum 3 mIU/mL (1-3)
== END ==
PROVIDERS: Family Provider Family Medicine; PCP Family Medicine; Referring Provider Family Medicine; Visit Provider Obstetrics & Gynecology Gynecologic Oncology
DX: O01.9 Hydatidiform mole, unspecified (principal); Z3A.00 Weeks of gestation of pregnancy not specified
CPT/HCPCS: 36415; 84702

== ENCOUNTER → 2019-09-15 16:44 | Outpatient (CLI) | payer OTHER, SELFPAY ==
[2019-07-27 09:00] VITALS: BMI 25.9
[2019-09-15 18:19] LABS: hCG Titer Quant., Serum < 1 mIU/mL (1-3)
== END ==
PROVIDERS: PCP Family Medicine; Referring Provider Obstetrics & Gynecology; Visit Provider Obstetrics & Gynecology
DX: O01.9 Hydatidiform mole, unspecified (principal)
CPT/HCPCS: 36415; 84702

== ENCOUNTER → 2019-09-22 11:44 | Outpatient (CLI) | payer OTHER, SELFPAY ==
[2019-07-27 09:00] VITALS: BMI 25.9
[2019-09-22 14:44] LABS: hCG Titer Quant., Serum < 1 mIU/mL (1-3)
== END ==
PROVIDERS: PCP Family Medicine; Referring Provider Family Medicine; Visit Provider Obstetrics & Gynecology
DX: O01.9 Hydatidiform mole, unspecified (principal)
CPT/HCPCS: 36415; 84702

== ENCOUNTER → 2019-12-29 09:55 | Outpatient (CLI) | payer OTHER, SELFPAY ==
[2019-07-27 09:00] VITALS: BMI 25.9
--- NOTE | 2019-12-29 09:58 | US_ITS ---
STUDY: FIRST TRIMESTER OBSTETRICAL ULTRASOUND REASON FOR EXAM: Female, 29 years old INITIAL- DATING -- VIABILITY LMP: November 01, 2019. TECHNIQUE: Transvaginal TECHNICAL QUALITY: Adequate. PRIOR ULTRASOUND: None. FINDINGS: There is visualization of a single gestational sac in a normal intrauterine position. The mean sac diameter (MSD) measures 3.53 cm, indicating an estimated gestational age (EGA) of 9 weeks, 0 days. The gestational sac shape is within normal limits. There is a visualized yolk sac. The yolk sac measures 4.7 mm. The placenta is non-visualized. There is visualization of a live embryo. The crown-rump length (CRL) measures 1.75 cm, indicating an estimated gestational age (EGA) of 8 weeks, 5 days. There is demonstrated cardiac activity with a heart rate of 164 bpm. The estimated gestation age (EGA) by LMP is 8 weeks, 2 days. The estimated date of delivery (DEVIN) by LMP is August 07, 2020. The estimated gestation age (EGA) by US is 8 weeks, 5 days. The estimated date of delivery (DEVIN) by US is August 04, 2020. The uterus measures 8.3 cm x 6.8 cm by 5.6 cm. The uterus is retroverted. There is no demonstrated uterine fibroid. The cervix is closed. There is evidence of a 1.5 cm x 1 cm x 0.3 cm subchorionic hematoma. The right ovary measures 3.8 cm x 2.7 cm x 2.2 cm. There is a dominant follicle measuring 1.9 cm x 1.7 cm x 1.2 cm. There is no visualized right adnexal mass or complex lesion. The left ovary measures 2.1 cm x 1.9 cm x 1.1 cm. There is no left ovarian cyst. There is no visualized left adnexal mass or complex lesion. There is minimal fluid in the cul de sac. US/Init OB < 14Wks US IMPRESSION: Single live intrauterine gestation with mean gestational age of 8 weeks and 5 days. Small subchorionic hematoma. Dominant follicle in the right ovary. Electronically Signed: Dmitry Bello, at 12:49 EDT , Service support ,
[2019-12-29 18:08] LABS: Amphetamine Urine VISTA NEGATIVE (<1000 ng/mL); Barbiturate Urine VISTA NEGATIVE (< 200 ng/mL); Benzodiazepine Urine VISTA NEGATIVE (< 200 ng/mL); Cocaine Urine VISTA NEGATIVE (< 300 ng/mL); Ecstacy Urine VISTA NEGATIVE (< 500 ng/mL); Methadone Urine VISTA NEGATIVE (< 300 ng/mL); PCP Urine VISTA NEGATIVE (< 25 ng/mL); THC Urine VISTA NEGATIVE (< 50 ng/mL); Vista UDS pH Range 6
[2019-12-29 19:07] LABS: Chlamydia Trachomatis by PCR Negative (Negative); Neisserai gonorrhoeae by PCR Negative (Negative); Probe Check PASS; Sample Adequacy Control PASS; Specimen Processing Control PASS
[2020-01-03 15:56] LABS: HPV APTIMA, High Risk Negative (Negative)
== END ==
PROVIDERS: PCP Family Medicine; Referring Provider Obstetrics & Gynecology; Visit Provider Obstetrics & Gynecology
DX: O26.21 Pregnancy care for patient with recurrent pregnancy loss, first trimester (principal); Z3A.08 8 weeks gestation of pregnancy
CPT/HCPCS: 76801; 80307; 87086; 87088; 87491; 87591; 87624; 88175; G0145

== ENCOUNTER → 2020-01-11 16:01 | Outpatient (CLI) | payer OTHER, SELFPAY ==
[2019-12-29 10:48] VITALS: BMI 25.9
[2020-01-11 17:12] LABS: NATERA MAILED SPECIMEN
[2020-01-11 17:40] LABS: Absolute Lymphocyte Count 2.83 X10^3/uL (0.83-4.51); Absolute Neutrophil Count 5.9 X10^3/uL (2.0-7.7); Basophil# 0.03 X10^3/uL; Basophil% 0.3 % (0-1); Eosinophil# 0.07 X10^3/uL; Eosinophils% 0.7 % (0-5); Hemoglobin 13.5 g/dL (12.0-15.0); Lymphocyte # 2.83 X10^3/ul (4.0); Lymphocyte % 30.1 % (19-41); Mean Corp Hgb Conc 32.9 g/dL (32-36); Mean Corpuscular Hgb 30.2 pg (27.0-32.0); Mean Corpuscular Volume 91.7 fL (81-99); Mean Platelet Vol. 9.9 fl (6.2-12.0); Monocyte% 6.4 % (0-10); NRBC Flagged by Analyzer 0 % (0-5); Neutrophil # 5.85 X10^3/uL (2.7-7.7); Neutrophil % 62.3 % (47-70); Platelet Count 253 K/mm3 (150-450); RBC Distribution Width CV 12.4 % (11.6-14.6); RBC Distribution Width SD 41.8 fl (35.1-43.9); Red Blood Count 4.47 M/mm3 (4.2-5.4); White Blood Count 9.4 K/mm3 (4.4-11.0)
[2020-01-12 08:49] LABS: HIV - WCH Non-Reactive (Nonreactive); Hepatitis B Surface Antigen Non-Reactive (Nonreactive); Hepatitis C Antibody Non-Reactive (Nonreactive); Rubella IgG 235.3 IU/mL
[2020-01-13 02:20] LABS: Rapid Plasmin Reagin (RPR) NONREACTIVE (NONREACTIVE)
== END ==
PROVIDERS: PCP Family Medicine; Referring Provider Obstetrics & Gynecology; Visit Provider Obstetrics & Gynecology
DX: Z34.81 Encounter for supervision of other normal pregnancy, first trimester (principal)
CPT/HCPCS: 36415; 85025; 86592; 86703; 86762; 86803; 86850; 86900; 86901; 87340

== ENCOUNTER → 2020-03-24 08:14 | Outpatient (CLI) | payer OTHER, SELFPAY ==
[2019-12-29 10:48] VITALS: BMI 25.9
[2020-02-23 09:21] VITALS: BMI 25.9
--- NOTE | 2020-03-24 08:14 | US_ITS ---
STUDY: SECOND AND THIRD TRIMESTER OBSTETRICAL ULTRASOUND REASON FOR EXAM: Female, 29 years old Anatomy Screening LMP: 10/31/2019. TECHNIQUE: Transabdominal TECHNICAL QUALITY: Adequate. PRIOR ULTRASOUND: Comparison is made with prior examination dated 12/29/2019. FINDINGS: There is a single intrauterine fetus. The fetus is in a cephalic presentation. There is demonstrated cardiac activity with a heart rate of 138 bpm. There is a normal amniotic fluid volume. The largest amniotic fluid pocket measures 3.8 cm. The amniotic fluid index (JAMIL) is within normal limits. The placenta is anterior in location and is not low lying. There are Grade 1 placental changes. The cervix measures 3.8 cm in length. The bilateral adnexal regions are normal. BIOMETRY: BPD: 5.05 cm: 21 weeks, 2 days HC: 18.16 cm: 20 weeks, 3 days AC: 15.66 cm: 20 weeks, 5 days FL: 3.39 cm: 20 weeks, 4 days CI: 81% FL/BPD: 67% FL/HC: FL/AC: 22% HC/AC: 1.16 age by current US: 20 weeks, 4 days. DEVIN by current US: 08/07/2020. Estimated weight: 374 grams, +/- 55 grams, 53 %. age by prior US: 21 weeks, 0 days. DEVIN by prior US: 08/04/2020. Age by LMP: 20 weeks, 4 days. DEVIN by LMP: 08/07/2020. ANATOMY: Gender: Female Cranium: Normal lateral ventricles. Normal choroid plexus. Normal cerebellum. Normal cisterna magna. Normal face, nose and lips. Chest: Normal 4-chamber heart. Abdomen/Pelvis: Normal diaphragm. Normal stomach. Normal abdominal wall. Normal cord insertion. Normal 3 vessel cord. Normal kidneys. Normal bladder. Spine: Normal cervical spine. Normal thoracic spine. Normal lumbar spine. Normal sacrum. Extremities: Normal bilateral upper extremities. Normal bilateral lower extremities. US/OB Anatomy Scan IMPRESSION: Single live intrauterine gestation with a mean gestational age of 21 weeks. The measurements obtained today fall within normal expected range. Electronically Signed: Dmitry Bello, at 13:46 EDT , Service support ,
== END ==
PROVIDERS: PCP Family Medicine; Referring Provider Nurse Practitioner Women's Health; Visit Provider Nurse Practitioner Women's Health
DX: Z34.81 Encounter for supervision of other normal pregnancy, first trimester (principal); Z3A.21 21 weeks gestation of pregnancy
CPT/HCPCS: 76805

== ENCOUNTER → 2020-05-17 08:56 | Outpatient (CLI) | payer OTHER, SELFPAY ==
[2020-04-20 09:16] VITALS: BMI 25.9
[2020-05-17 09:32] LABS: Absolute Lymphocyte Count 1.92 X10^3/uL (0.83-4.51); Absolute Neutrophil Count 6.9 X10^3/uL (2.0-7.7); Basophil# 0.02 X10^3/uL; Basophil% 0.2 % (0-1); Eosinophil# 0.07 X10^3/uL; Eosinophils% 0.7 % (0-5); Hematocrit 38.8 % (37-47); Hemoglobin 12.7 g/dL (12.0-15.0); Lymphocyte # 1.92 X10^3/ul (4.0); Lymphocyte % 20.1 % (19-41); Mean Corp Hgb Conc 32.7 g/dL (32-36); Mean Corpuscular Hgb 31.1 pg (27.0-32.0); Mean Corpuscular Volume 95.1 fL (81-99); Mean Platelet Vol. 9.3 fl (6.2-12.0); Monocyte# 0.56 X10^3/uL; Monocyte% 5.9 % (0-10); NRBC Flagged by Analyzer 0 % (0-5); Neutrophil # 6.89 X10^3/uL (2.7-7.7); Neutrophil % 72.4 % (47-70); Platelet Count 198 K/mm3 (150-450); RBC Distribution Width CV 12.2 % (11.6-14.6); RBC Distribution Width SD 42.2 fl (35.1-43.9); Red Blood Count 4.08 M/mm3 (4.2-5.4); White Blood Count 9.5 K/mm3 (4.4-11.0)
[2020-05-17 09:40] LABS: Glucose Challenge Gest 1H 50g 114 mg/dL (70-140)
== END ==
PROVIDERS: PCP Family Medicine; Referring Provider Obstetrics & Gynecology; Visit Provider Obstetrics & Gynecology
DX: Z34.80 Encounter for supervision of other normal pregnancy, unspecified trimester (principal); Z13.1 Encounter for screening for diabetes mellitus
CPT/HCPCS: 36415; 82950; 85025

== ENCOUNTER → 2020-07-12 14:32 | Outpatient (CLI) | payer OTHER, SELFPAY ==
[2020-07-12 09:00] VITALS: BMI 28.7
== END ==
PROVIDERS: PCP Family Medicine; Visit Provider Obstetrics & Gynecology
DX: Z34.80 Encounter for supervision of other normal pregnancy, unspecified trimester (principal)
CPT/HCPCS: 87081

== ENCOUNTER → 2020-07-18 09:58 | Outpatient (CLI) | payer OTHER, SELFPAY ==
[2020-07-12 09:00] VITALS: BMI 28.7
== END ==
PROVIDERS: PCP Family Medicine; Referring Provider Obstetrics & Gynecology; Visit Provider Obstetrics & Gynecology
DX: Z34.90 Encounter for supervision of normal pregnancy, unspecified, unspecified trimester (principal); Z20.828 Contact with and (suspected) exposure to other viral communicable diseases
CPT/HCPCS: 87635; C9803; U0003

== ENCOUNTER → 2020-07-28 10:25 | Outpatient (CLI) | payer OTHER, SELFPAY ==
[2020-07-26 08:54] VITALS: BMI 29.1
== END ==
PROVIDERS: PCP Family Medicine; Visit Provider Obstetrics & Gynecology
DX: Z34.80 Encounter for supervision of other normal pregnancy, unspecified trimester (principal); Z20.828 Contact with and (suspected) exposure to other viral communicable diseases
CPT/HCPCS: 87635; C9803; U0003

== ENCOUNTER 2020-08-07 11:45 | Inpatient (IN) | payer OTHER, SELFPAY ==
[2020-08-07] VITALS (41 sets, daily range): BP systolic 109–146; BP diastolic 6–106; PULSE 64–115; TEMP 36.3–36.9; O2SAT 97–100; BMI 29.5; BMI 29.4
[2020-08-07] MEDS: Lactated Ringers 1,000 ML 50 ML IV (12:25)
--- NOTE | 2020-08-07 12:42 | HP.PCM_ITS ---
- Problem List (1) Anxiety Status: Acute Comment: related to previous SAB. Declines medication (2) COVID-19 virus not detected Status: Acute (3) Influenza vaccine administered Status: Acute Comment: 05/17/2020sc (4) Status: Acute Qualifiers: Comment: genetic low risk, declines carrier and ntd screening. anatomy normal. (5) Supervision of other normal Status: Acute Comment: PRR DEVIN 08/07/2020 girl Irma PC: Yoan Spouse: Sukhjinder History and Physical Date of Admission: 08/07/20 v Intake Vital Signs 08/07/20 Height 5 ft 7 in 08/07/20 Weight: 188 lb 8 oz 08/07/20 BMI 29.5 08/07/20 BP 130/80 H Intake Visit Reasons: OB exam Profiling Machine Operator Required: No Is patient in pain?: No Allergies penicillin G Allergy (Mild, Verified 08/07/20 10:54) Hives Medications prenat.vits,brendan,nfo-vpnz-noida 1 tab PO QDAY 07/29/17 [History Confirmed 08/07/20] docusate sodium 100 mg capsule 100 mg PO DAILY 02/23/20 [History Confirmed 08/07/20] Last Menstral Period: 11/01/19 Zika: Zika virus screening: Negative : No PFSH PFSH Medical History No significant medical problems (Acute) Spontaneous (Acute) Surgical History H/O dilation and curettage (Acute) H/O knee surgery (Acute) Family History Father Diabetes Social History (Updated 08/07/20 @ 12:[address] Yolanda Burdick MD) household members: spouse housing: house number of children: 1 current occupational status: employed Smoking Status: Former smoker second hand exposure: No alcohol intake: never substance use type: does not use caffeine: No what type of physical activity do you participate in: walking frequency: 3-4 times per week seatbelt use: always do you feel safe at home: Yes additional social history: Sukhjinder-adaptive morgan Pregancy History 4 Elective abortions Hx Para 1 Spontaneous abortions 2 Hx # Term Pregnancies 1 Ectopic pregnancies Hx # Pregnancies Multiple births # of living children 1 Past Pregnancies Del. Date Name GA/Weeks Outcome Route Bth Weight Infant Gen [facility] Unknown 09/24/2017 Yoan 38 live - full term 8 Male e pidural Matt DEBBY Delivery Date: Debbie Pelaez HPI OB exam: Details: MICAELA LANGFORD is a 29 year old presents with SROM clear fluid, 5 cm dilated, uncomplicated . OB Visit DEVIN Calculator Estimated Delivery Date Method Current WG Current Estimate 08/07/20 LMP (Certain) 40w 0d Expected Delivery Route/Plan Labor Preferences- labor support person: Sukhjinder pain management options preferred: epidural cut cord/dad catch: yes : yes PP control planned: pill discussed possible routes of delivery and associated risks: discussed possible delivery modalities and possible indications for each including R/B/A of , VAVD, FAVD, and CS. questions answered. special requests: none Specific Issue/Plans flu vaccine: given tdap vaccine: 05/29 given rhogam: na LARC form signed: yes movement and labor precautions reviewed. Problem list reviewed and updated with the most current plan of care details and appropriate orders placed. Relevant counseling for the gestational age provided. Continue routine care and follow up unless otherwise noted in visit notes/problem list details Initial Weight: 153 lb Date EGA Weight BP Urine Prot Glucose FHR FuHt Pres Dilation Effaced St Visit Note 01/24/20 12w 0d 151 lb (-2 lb) 102/64 Negative Negative 151 MH-no Vb, LOF. NIPT LR/girl. 02/23/20 16w 2d 154 lb 2 oz (+1 lb 2 oz) 100/60 Negative Negative 150 SM- no vb lof cramping declined afp screen 03/24/20 20w 4d 120/72 150 SM- no vb lof good fm no regular ctx 04/20/20 24w 3d 160 lb 2 oz (+7 lb 2 oz) 108/60 Negative Negative 140 24 GP - no VB, LOF, DFM, ctx. Denies complaints. Glucola next visit. 05/17/20 28w 2d 170 lb (+17 lb) 122/76 Negative Negative 146 28 MH-No Vb, LOF. Good FM. 28 wk labs and tdap. MH-No Vb, LOF. Good FM. 28 wk labs WNL today. and tdap. MH-No Vb, LOF. Good FM. 28 wk labs WNL today. Tdap next visit. 05/29/20 30w 0d 171 lb (+18 lb) 122/74 Negative Negative 135 30 SM- no vb lof good fm no regular ctx larc signed 06/12/20 32w 0d 171 lb (+18 lb) 124/76 Negative Negative 155 32 Cephalic GP - no LOF, VB, DFM, regular ctx. Denies complaints. 06/28/20 34w 2d 177 lb (+24 lb) 122/88 Negative Negative 145 34 Cephalic SM- no vb lof good fm no regular ctx 07/12/20 36w 2d 183 lb 6 oz (+30 lb 6 oz) 110/80 Negative Negative 140 36 Cephalic 3 70 -2 GP - no LOF, VB, DFM. Irr egular ctx. Discussed that as she is 3cm, recommend COVID testing at 37w. GBS done today. 07/18/20 37w 1d 185 lb (+32 lb) 134/72 140 37 3 70 -1 SM- no vb lof good fm no regular ctx 07/26/20 38w 2d 186 lb (+33 lb) 122/80 Negative Negative 140 38 Cephalic 5 80 -1 GP - no LOF, VB, DFM, ctx . Declined membrane sweeping. GP - no LOF, VB, DFM, ctx. Declined membrane sweeping. Repeat COVID testing ordered for Friday if no labor before. 08/02/20 39w 2d 188 lb 8 oz (+35 lb 8 oz) 128/84 Negative Negative 140 39 Cephalic 5 80 -1 GP - no LOF, VB, DFM, reg ctx. 08/07/20 40w 0d 188 lb 8 oz (+35 lb 8 oz) 130/80 Negative Negative 130 40 Cephalic 5 80 -1 GP - no ctx, VB, DFM. ROM occurred during sweeping of membranes. ACOG First Trimester First Trimester: Desire for , Alcohol, Tobacco Cessation, Il licit/Recreational Drug/Substance Use, Intimate Partner Violence, Barriers to care, Unstable Housing, Communication Barriers, Environmental/Work Hazards, Anticipated Course of Care, Toxoplasmosis Precations, Use of Any medications, Sexual activity, Exercise, Dental Care, Sauna/Hot tub use, Seat Belt use, Childbirth classes/Hospital facilities, Travel, Indications for US and Screening for Aneuploidy Diagnostics Diagnostics Diagnostics Glucose 1 Hr 50 gm 114 mg/dL (70-140) 05/17/20 Hgb 12.7 g/dL (12.0-15.0) 05/17/20 Hct 38.8 % (37-47) 05/17/20 Details: HIV: Urine Culture: Sequential Screen: NIPT Screen: ROS Const Reports system reviewed and no additional complaints, except as docu Eyes Reports system reviewed and no additional complaints, except as docu ENT Reports system reviewed and no additional complaints, except as docu Card Reports system reviewed and no additional complaints, except as docu Resp Reports system reviewed and no additional complaints, except as docu Reports system reviewed and no additional complaints, except as docu Musc Reports system reviewed and no additional complaints, except as docu Skin/Breast Reports system reviewed and no additional complaints, except as docu Neuro Yes system reviewed and no additional complaints, except as docu Psych Reports system reviewed and no additional complaints, except as docu Exam Const General: cooperative, healthy appearing, comfortable, no acute distress, well developed, well groomed Nutritional Appearance: average body habitus, well nourished Orientation: alert, awake, oriented x3 HENSC Head: normal to inspection, normocephalic, atraumatic Eyes Pupils: PERRL, accommodation normal Resp Effort & Inspection: normal respiratory effort, able to speak in complete sentences, symmetric chest movement Cardio Rate: regular rate GI Palpation: soft, no guarding, no masses, nontender Skin General: no rashes or lesions noted, elasticity normal, turgor normal Neuro General: alert, awake, oriented x3 Cranial Nerves: CN's II-XI intact bilaterally, sense of smell intact, PERRL, accommodation normal, EOM intact bilaterally Speech: speech normal Gait: normal gait Psych Appearance: grossly normal, well kempt Mental Status: mental status grossly normal Mood: congruent mood Affect: normal affect Speech and Movement: speech and movement normal Attitude: cooperative Thought Process: normal Thought Content: normal Judgment: judgment good Results POC Urinalysis 2 Dip (Clinic) Office Urine Glucose Negative Last Edit by Gisela Pina on 08/07/20 11:06 Office Urine Protein Negative Last Edit by Gisela Pina on 08/07/20 11:06 Assessment & Plan Problems 1. COVID-19 virus not detected Z03.818 2. Influenza vaccine administered Z23 05/17/2020sc 3. Anxiety F41.9 related to previous SAB. Declines medication 4. Supervision of other normal Z34.80 PRR DEVIN 08/07/2020 girl Irma PC: Yoan Spouse: Sukhjinder 5. 40 weeks gestation of Z3A.40 genetic low risk, declines carrier and ntd screening. anatomy normal. Plan Patient sent for direct admission for ROM, plan expectant management for , pitocin if needed]. Pain management:plans epidural. GBS negative. Management of any complications: none I have reviewed the [facility] and made any clinically relevant updates. Orders Orders: POC Urinalysis 2 Dip (Clinic) Today Coding Level of Care Code OB Routine Diagnoses COVID-19 virus not detected Z03.818 Influenza vaccine administered Z23 Anxiety F41.9 Supervision of other normal Z34.80 40 weeks gestation of Z3A.40 ??Weeks of gestation: 40 weeks UPDATE- I have seen the patient and performed any clinically relevant updates to the history and physical exam. Cadence Almanzar MD
[2020-08-07 12:47] LABS: Absolute Neutrophil Count 7.5 X10^3/uL (2.0-7.7); Basophil# 0.02 X10^3/uL; Basophil% 0.2 % (0-1); Eosinophil# 0.06 X10^3/uL; Eosinophils% 0.6 % (0-5); Hematocrit 38.8 % (37-47); Hemoglobin 13.2 g/dL (12.0-15.0); Lymphocyte % 17.7 % (19-41); Mean Corpuscular Hgb 31.1 pg (27.0-32.0); Mean Corpuscular Volume 91.5 fL (81-99); Mean Platelet Vol. 10.2 fl (6.2-12.0); Monocyte% 6.9 % (0-10); NRBC Flagged by Analyzer 0 % (0-5); Neutrophil % 73.8 % (47-70); Platelet Count 184 K/mm3 (150-450); RBC Distribution Width CV 12.9 % (11.6-14.6); RBC Distribution Width SD 42.5 fl (35.1-43.9); Red Blood Count 4.24 M/mm3 (4.2-5.4); White Blood Count 10.2 K/mm3 (4.4-11.0)
[2020-08-07] MEDS: Lactated Ringers 500 ML 999 ML IV (14:30)
[2020-08-07] MEDS: fentaNYL-bupivacaine (epidural) 100 ML BAG EPIDURAL (15:14)
[2020-08-07] MEDS: Ondansetron 4 MG/2 ML Vial IV (16:59)
[2020-08-07] MEDS: 0.9% Saline Lock 10 ML Syringe IV ×2 (16:59→20:50)
[2020-08-07] MEDS: Oxytocin 30 units/NS 500 ml 30 UNITS/500 ML IV.SOLN 334 UNITS IV (18:16)
[2020-08-07] MEDS: Methylergonovine 0.2 MG/ML Ampul IM (18:23)
--- NOTE | 2020-08-07 18:45 | PCM.OPRPT ---
Problem List (1) Anxiety Status: Acute Comment: related to previous SAB. Declines medication (2) COVID-19 virus not detected Status: Acute (3) Influenza vaccine administered Status: Acute Comment: 05/17/2020sc (4) Status: Acute Qualifiers: Comment: genetic low risk, declines carrier and ntd screening. anatomy normal. (5) Supervision of other normal Status: Acute Comment: PRR DEVIN 08/07/2020 girl Irma PC: Yoan Spouse: Sukhjinder Vaginal Delivery Maternal Presentation: Active Labor ial 5 cm SROM Amniotic Membrane Rupture Type: Spontaneous Amniotic Fluid Description: Clear Final DEVIN: 08/07/20 Gestational age: 40 Weeks and 0 Days Date of Procedure: 08/07/20 Pre-Operative Diagnosis: ial Post-Operative Diagnosis: same Surgery/ Procedure Performed: Spontaneous Vaginal Delivery Type of Anesthesia: Epidural Description of Procedure: Patient began pushing and delivered the head in the SYLVIA presentation. The head was delivered atraumatically . The anterior and posterior shoulders delivered without complication followed by the rest of the infant and the was placed on the maternal abdomen. Delayed cord clamping was employed for approximately 60 seconds. Cord was clamped and cut and gentle traction was applied to the cord and the placenta delivered spontaneously immediately following it was noted to be intact with three-vessel cord. The perineum and vagina were inspected and noted to have a first degree laceration repaired in the usual fahsion with 3-0 vicryl rapide. EBL was 300 cc. Patient and infant tolerated delivery well. Presentation: SYLVIA Placental Delivery Description: Spontaneous Placenta Disposition: [facility] Cord Vessel Description: 3 Vessels Cord Entanglement: None Estimated Blood Loss: 300 A gender: Female Episiotomy Description: None Laceration: Perineal Extension/lac, 1st degree Medications given after delivery: IV Pitocin, IM Methergin - for mild atony without hemorrhage Complications: None Multi Select Codes - Urinary/Genital Urinary/Genital CPT Codes: 22549 Vaginal Delivery [facility]
[2020-08-07] MEDS: Acetaminophen 500 MG Tablet 1000 MG PO (20:16)
--- NOTE | 2020-08-07 22:30 | NURSING ---
Late entry: at 2049 epidural removed, blue tip intact
[2020-08-08 00:13] VITALS: BP 112/85; PULSE 87; RESP 18; TEMP 36.5
[2020-08-08 04:15] VITALS: BP 114/63; PULSE 75; RESP 18; TEMP 36.6
[2020-08-08] MEDS: Naproxen 250 MG Tablet 500 MG PO ×3 (04:20→20:24)
--- NOTE | 2020-08-08 07:54 | PCM.PN.OB ---
Patient Problems: Active and Suspected Problems (Last Reviewed 08/07/20 @ 10:54 by Gisela Pina) COVID-19 virus not detected (Acute) Influenza vaccine administered (Acute) 05/17/2020sc Anxiety (Acute) related to previous SAB. Declines medication Supervision of other normal (Acute) PRR DEVIN 08/07/2020 girl Irma PC: Yoan Spouse: Sukhjinder (Acute) genetic low risk, declines carrier and ntd screening. anatomy normal. Subjective: Patient doing well without complaints. Tolerating PO. Ambulating and voiding without difficulty. Breast feeding well. Denies chest pain, shortness of breath, calf pain/swelling, fevers, chills, lightheadedness. - Physical Exam Vitals/I&O's: Vital Signs Temp Pulse Resp BP Pulse Ox 97.9 F 75 18 114/63 100 08/08/20 04:15 08/08/20 04:15 08/08/20 04:15 08/08/20 04:15 08/07/20 18:37 Oxygen Delivery Method Room Air Weight: 187 lb 13.341 oz Body Mass Index (BMI) 29.4 Intake and Output for Last 24 Hours 08/06/20 08/07/20 08/08/20 23:59 23:59 23:59 Intake Total 1992.51 / 1992.51 Output Total 1700 / 1700 900 / 900 Balance 292.51 / 292.51 -900 / -900 General: Alert, Oriented x3 Abdomen: Non Tender, Non-Distended, - - FF below U Microbiology Past 72 Hours 08/07/20 12:25 Mucosa - Nose SARS-CoV-2 Antigen (Rapid) - Final Laboratory Results 08/07/20 12:25: WBC 10.2, RBC 4.24, Hgb 13.2, Hct 38.8, MCV 91.5, MCH 31.1, MCHC 34.0, RDW Std Deviation 42.5, RDW Coeff of Ab 12.9, Plt Count 184, MPV 10.2, Immature Gran % (Auto) 0.800, Neut % (Auto) 73.8 H, Lymph % (Auto) 17.7 L, [place] % (Auto) 6.9, Eos % (Auto) 0.6, Baso % (Auto) 0.2, Absolute Neuts (auto) 7.5, Absolute Lymphs (auto) 1.80, Nucleated RBC % 0 08/07/20 12:25: Blood Type O POSITIVE, Antibody Screen NEGATIVE Current Medications Acetaminophen (Acetaminophen 500 Mg Tablet) 1,000 mg PO Q8H PRN PRN PRN Reason: Pain Score 1-3 Last Admin: 08/07/20 20:16 Dose: 1,000 mg Documented by: Bisacodyl (Bisacodyl 10 Mg Suppository) 10 mg RECTAL UD PRN PRN Reason: If no BM Dibucaine (Dibucaine 30 Gm Tube) 1 applic TOPICAL TID PRN PRN; Protocol PRN Reason: Discomfort Hydrocortisone (Hydrocortisone 2.5% Crm) 1 applic TOPICAL TID PRN PRN; Protocol PRN Reason: Discomfort Methylergonovine Maleate (Methylergonovine 0.2 Mg/Ml Ampul) 0.2 mg IM X1 PRN PRN Reason: Excess bleeding/uterine atony Last Admin: 08/07/20 18:23 Dose: 0.2 mg Documented by: Naproxen (Naproxen 250 Mg Tablet) 500 mg PO Q8H PRN PRN PRN Reason: Pain Score 1-3 Last Admin: 08/08/20 04:20 Dose: 500 mg Documented by: Ondansetron HCl (Ondansetron 4 Mg/2 Ml Vial) 4 mg IV Q4H PRN PRN PRN Reason: Nausea Oxycodone HCl (Oxycodone 5 Mg Tablet) 5 - 10 mg PO Q4H PRN PRN PRN Reason: Pain Score 4-10 Senna/Docusate Sodium (Senna/Docusate Sodium 1 Tablet) 1 - 2 tablet PO DAILY PRN PRN PRN Reason: Constipation Simethicone (Simethicone 80 Mg Tablet) 80 mg PO PCHS PRN PRN Reason: Indigestion/Stomach pain Sodium Chloride (0.9% Saline Lock 10 Ml Syringe) 5 - 15 ml IV UD PRN PRN Reason: SALINE FLUSH Last Admin: 08/07/20 20:50 Dose: 10 ml Documented by: Medical Necessity - Tobacco Use Smoking Status: Former smoker Assessment/Plan All Active Problems (Last Reviewed 08/07/20 @ 10:54 by Gisela Pina) COVID-19 virus not detected (Acute) Influenza vaccine administered (Acute) Anxiety (Acute) Supervision of other normal (Acute) (Acute) Complete (Resolved) Complete (Resolved) Incomplete with delayed or excessive hemorrhage (Resolved) Missed (Resolved) (Resolved) Subchorionic hematoma in first trimester (Resolved) Supervision of other normal (Resolved) gbs negative (Resolved) Threatened (Ruled-out) s/p PPD # 1 1. routine post delivery care 2. breast feeding- support given 3. rh positive 4. rubella immune 5. home today
--- NOTE | 2020-08-08 07:55 | DCINST_ITS ---
Additional Instructions: If you experience any of the following, contact your healthcare provider. * Bleeding that soaks a pad every hour for 2 hours * Fever 100.4 or higher * Unrelieved incision or abdominal pain * Swelling, redness, discharge or bleeding from your incision or episiotomy site * Your incision begins to separate * Problems urinating (including inability to urinate or burning while urinating). * Visual changes * Severe headache * Flu-like symptoms * Pain or redness in one of both of your breasts * Pain, warmth, tenderness or swelling in your legs, especially the calf area * Frequent nausea and vomiting * Symptoms of depression or anxiety If you experience any of the following, call 911 or go to the nearest Emergency Room. * Chest pain * Problems breathing * Seizure activity * Partial or complete paralysis of a body part, slurred speech, weakness or drooping of the face, or a sudden inability to walk or hold your balance Allergies/Adverse Reactions: Allergies penicillin G Allergy (Mild, Verified 08/07/20 10:54) Hives Medications to take at Discharge prenat.vits,brendan,iti-[id number]-[id number] 1 tab PO QDAY 07/29/17 docusate sodium 100 mg capsule 100 mg PO DAILY 02/23/20 Primary Care Physician: Ronald Michael DO [Primary Care Provider] - Test Results: Test results from this visit will be discussed in further detail at your follow- up appointment, if applicable.
--- NOTE | 2020-08-08 07:55 | PCM.DCVAG ---
Additional Instructions: If you experience any of the following, contact your healthcare provider. Bleeding that soaks a pad every hour for 2 hours Fever 100.4 or higher Unrelieved incision or abdominal pain Swelling, redness, discharge or bleeding from your incision or episiotomy site Your incision begins to separate Problems urinating (including inability to urinate or burning while urinating). Visual changes Severe headache Flu-like symptoms Pain or redness in one of both of your breasts Pain, warmth, tenderness or swelling in your legs, especially the calf area Frequent nausea and vomiting Symptoms of depression or anxiety If you experience any of the following, call 911 or go to the nearest Emergency Room. Chest pain Problems breathing Seizure activity Partial or complete paralysis of a body part, slurred speech, weakness or drooping of the face, or a sudden inability to walk or hold your balance Allergies/Adverse Reactions: Allergies penicillin G Allergy (Mild, Verified 08/07/20 10:54) Hives Medications to take at Discharge prenat.vits,brendan,[id number]-[id number] 1 tab PO QDAY 07/29/17 docusate sodium 100 mg capsule 100 mg PO DAILY 02/23/20 Primary Care Physician: Ronald Michael DO [Primary Care Provider] - Test Results: Test results from this visit will be discussed in further detail at your follow-up appointment, if applicable.
[2020-08-08 08:50] VITALS: BP 109/63; PULSE 75; RESP 16; TEMP 36.2; O2SAT 97
[2020-08-08 12:07] VITALS: BP 109/59; PULSE 77; RESP 18; TEMP 36.3; O2SAT 97
[2020-08-08 16:00] VITALS: BP 126/64; PULSE 77; RESP 16; TEMP 36.4; O2SAT 96
[2020-08-08 20:25] VITALS: BP 140/77; PULSE 89; RESP 18; TEMP 36.3
== END 2020-08-08 20:40 | disposition home or self-care (01) | DRG 807 ==
PROVIDERS: Obstetrics & Gynecology; Admitting Provider Obstetrics & Gynecology; PCP Family Medicine; Visit Provider Obstetrics & Gynecology
DX: O70.0 First degree perineal laceration during delivery (principal); O75.89 Other specified complications of labor and delivery; Z87.891 Personal history of nicotine dependence; Z3A.40 40 weeks gestation of pregnancy; Z37.0 Single live birth
CPT/HCPCS: 59025; 59050; 85025; 86850; 86900; 86901; 87426; 99218; J7120; A4216; G0378; J2405

== ENCOUNTER → 2020-09-21 10:21 | Outpatient (CLI) | payer OTHER, SELFPAY ==
[2020-09-21 10:01] VITALS: BMI 26.7
[2020-09-21 11:02] LABS: hCG Titer Quant., Serum < 1 mIU/mL (1-3)
== END ==
PROVIDERS: PCP Family Medicine; Referring Provider Obstetrics & Gynecology; Visit Provider Obstetrics & Gynecology
DX: Z87.59 Personal history of other complications of pregnancy, childbirth and the puerperium (principal)
CPT/HCPCS: 36415; 84702

== ENCOUNTER 2021-08-02 13:33 | Emergency (ER) | payer OTHER, SELFPAY ==
[2021-08-02 13:35] VITALS: BP 138/99; PULSE 100; RESP 18; TEMP 36.1; O2SAT 100; BMI 23.5
[2021-08-02 13:56] VITALS: BP 125/90; PULSE 77; RESP 21; O2SAT 100
--- NOTE | 2021-08-02 14:11 | EKG12_ITS ---
Test Reason : CP Blood Pressure : / mmHG Vent. Rate : 079 BPM Atrial Rate : 079 BPM P-R Int : 134 ms QRS Dur : 084 ms QT Int : 372 ms P-R-T Axes : 061 074 053 degrees QTc Int : 426 ms Normal sinus rhythm with sinus arrhythmia Normal ECG No previous ECGs available Confirmed by AKHIL YADAV, NANETTE ([id number]), dictionary editor HOLLY VASQUEZ ([id number]) on 08/07/2021 7:30:47 AM Referred By: FRANCO Confirmed By:NANETTE LANDAVERDE MD
--- NOTE | 2021-08-02 14:11 | RAD_ITS ---
STUDY: X-RAY CHEST REASON FOR EXAM: Female, 30 years old. Chest pain TECHNIQUE: Single AP portable view of the chest. COMPARISON: None. FINDINGS: EKG electrodes are seen. The lungs are clear and expanded. There is no demonstrated pleural abnormality. Normal size heart. Normal mediastinum and sergio. Normal visualized pulmonary arteries. Normal visualized aortic arch and descending thoracic aorta. Normal visualized thoracic spine. Normal visualized ribs, clavicles, and shoulders. There is no demonstrated abnormality of the visualized soft tissue structures of the upper abdomen. RAD/Chest 1 View (Portable) IMPRESSION: Normal x-ray examination of the chest. Electronically Signed: Dmitry Bello MD at 15:07 EST , Service support ,
--- NOTE | 2021-08-02 14:24 | ED.VIS.CHEST ---
HPI History of Present Illness Chief Complaint: Chest Pain Informant: patient Onset/Context/Timing Onset: Weeks (1) Activity at onset: gradual Timing: Intermittent (But constant today) Quality: Positive for Tightness Location: Substernal Worsened By: - (Anxiety) Relieved By: Nothing Associated Symptoms: Positive for Dyspnea and Palpitations; Negative for Nausea, Vomiting, Diaphoresis, Cough, Fever, Lightheadedness and Acid Reflux Narrative Narrative: Patient presents with chest pain that has been intermittent over the last week. Patient states it came on again today while she was at work. Patient states that it has been constant most of the day today. 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 Patient states she put herself on the monitor and noted some inverted T waves. Patient describes her pain as a tightness. Patient states it is over the substernal area. Patient states her pain seems to be worse when she is more anxious. Patient admits to some shortness of breath and some palpitations. Patient states it feels like her heart is racing at times. Patient denies any nausea or vomiting. Patient denies any diaphoresis. Patient denies any cough or fevers. Patient denies any lightheadedness or reflux symptoms. CVD Risk Factors: Negative for Hypertension, Diabetes, Hypercholesterolemia, Family History 1' </=55 and Smoking PE Risk Factors: Negative for Recent Travel/Surgery, Recent Immobilization, Prior DVT or PE, Cancer and OCP + Smoking + >/=35 [facility] Medical History Spontaneous Home Medications prenat.vits,brendan,swk-mems-eauzj 1 tab PO QDAY 07/29/17 [History Last Taken 08/07/20] norethindrone (contraceptive) 0.35 mg tablet 0.35 mg PO QDAY #28 tab 09/21/20 [Rx Last Taken Unknown] cetirizine-pseudoephedrine [Zyrtec-D] 1 tab PO DAILY 08/02/21 [History Last Taken Unknown] docusate sodium [Colace] 50 mg PO DAILY 08/02/21 [History Last Taken Unknown] Allergy/AdvReac Type Severity Reaction Status Date / Time penicillin G Allergy Mild Hives Verified 08/07/20 10:54 Family History Father Diabetes Surgical History H/O dilation and curettage H/O knee surgery Social History household members: spouse housing: house number of children: 1 current occupational status: employed Smoking Status: Never smoker second hand exposure: No alcohol intake: never substance use type: does not use caffeine: No what type of physical activity do you participate in: walking frequency: 3-4 times per week seatbelt use: always do you feel safe at home: Yes additional social history: [employer] 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 [employer] ROS ROS ED Constitutional Constitutional ED: Denies chills or fever(s) Eyes Eyes: Denies blurry vision or change in vision ENT ENT ED: Denies rhinorrhea or sore throat Cardiovascular Cardiovascular: Reports chest pain and palpitations Respiratory/Chest Respiratory/Chest: Reports dyspnea; Denies cough Gastrointestinal Gastrointestinal: Reports nausea; Denies abdominal pain or vomiting Genitourinary Genitourinary ED: Denies dysuria or hematuria Musculoskeletal Musculoskeletal: Reports back pain; Denies neck pain Integumentary Denies abscess or rash Neurologic Neurologic: Denies headache(s) or weakness Allergic/Immunologic Allergic/Immunologic ED: Denies mouth swelling or urticaria EXAM Physical Exam Const Vital Signs: 08/02/21 13:35 08/02/21 13:56 08/02/21 14:46 Temperature 97 F L Temperature Source Temporal Pulse Rate 100 77 Respiratory Rate 18 21 H Respiratory Effort Normal Blood Pressure 138/99 H 125/90 H Blood Pressure Mean 112 101 Pulse Ox 100 100 99 Oxygen Delivery Method Room Air Room Air Room Air 08/02/21 14:54 08/02/21 15:15 Temperature Temperature Source Pulse Rate 82 87 Respiratory Rate 16 17 Respiratory Effort Blood Pressure 123/76 H 117/73 Blood Pressure Mean 91 87 Pulse Ox 98 98 Oxygen Delivery Method Room Air Room Air Positive well nourished and well developed General Appearance ED: well developed HEENT normocephalic and atraumatic Eyes PERRL and EOMs intact bilaterally Neck supple and no JVD Chest Wall palpation of chest normal Resp normal respiratory effort and clear to auscultation bilaterally Effort and Inspection: Negative for respiratory distress Cardio regular rate, regular rhythm and no murmurs GI normal to inspection, nondistended, normoactive bowel sounds, soft to palpation, non-tender and non-distended Extremity normal to inspection General Extremety ED: Negative for edema or tenderness General Extremity: Negative for edema Neuro oriented x3, CN's II-XII intact bilaterally and no sensory deficits noted Sensorium / Orientation: awake and alert Motor Exam: strength 5/5 throughout Psych mental status grossly normal Heart Score History: Moderately Suspicious ECG: Normal Age: </= 45 years Risk Factors: No Risk Factors Troponin: </= Normal Limit Score: 1 MDM MDM MDM Narrative Medical decision making narrative: EKG was obtained. On my interpretation, it showed a normal sinus rhythm with a rate of 79. OK interval, QRS interval, and QTc intervals were all normal. [place] was normal. There are no acute ST or T wave changes. There are no prior EKGs available for comparison. Portable 1 view chest x-ray was obtained. On my interpretation, lung bates are clear. There is normal cardiac silhouette. Bony thorax is normal. There is no acute process noted. Radiologist also interpreted the x-ray and agrees. CBC was within normal limits. Basic metabolic profile was normal. Initial high-sensitivity troponin was 4. 2-hour repeat high-sensitivity troponin was less than 3. Patient has a HEART score of 1. Patient was advised that this is low risk for acute cardiac event. Patient was instructed to follow-up with her primary care physician in 5 to 7 days. Patient understood and was agreeable with plan. All questions were answered. Lab Data Labs: Laboratory Results - last 24 hr 08/02/21 08/02/21 08/02/21 13:53 13:53 15:37 WBC 7.1 RBC 4.19 L Hgb 13.0 Hct 39.2 MCV 93.6 MCH 31.0 MCHC 33.2 RDW Std Deviation 45.2 H RDW Coeff of Ab 13.2 Plt Count 278 MPV 9.7 Immature Gran % (Auto) 0.100 Neut % (Auto) 44.9 L Lymph % (Auto) 36.6 [place] % (Auto) 9.5 Eos % (Auto) 8.1 H Baso % (Auto) 0.8 Absolute Neuts (auto) 3.2 Absolute Lymphs (auto) 2.61 Nucleated RBC % 0 Sodium 141 Potassium 3.4 L Chloride 104 Carbon Dioxide 32.0 Anion Gap 5 BUN 20 H Creatinine 0.94 Estim Creat Clear Calc 84.33 Est GFR (MDRD) Af Amer 89 Est GFR (MDRD) Non-Af 73 BUN/Creatinine Ratio 21.2 H Glucose 86 Calcium 9.5 Troponin I High Sens 4 < 3 L Radiography Chest X-Ray - ED: 1 View, Read by ED Physician, Read by Radiologist and Normal Diagnostic Testing: Clinical Impression(s) from Imaging Studies Chest X-Ray 08/02/21 14:11 IMPRESSION: Normal x-ray examination of the chest. Electronically Signed: Dmitry Bello MD at 15:07 EST , Service support , EKG Initial EKG: Attestation: I personally reviewed and interpreted this EKG as follows: Interpretation: Sinus Rhythm (79) and No Acute Injury Pattern Prior EKG tracings: not available for review Discharge Plan Triage Chief Complaint: Chest Pain ED Provider: Kraig Greer Dx/Rx/DC Orders Clinical Impression: Chest pain Instructions: ED Chest Pain, Uncertain Cause Prescriptions: No Action prenat.vits,brendan,aoh-zipm-npbon [ Vitamin] tablet 1 tab PO QDAY RF: 0 norethindrone (contraceptive) [Araceli] 0.35 mg tablet 0.35 mg PO QDAY Qty: 28 RF: 12 cetirizine-pseudoephedrine [Zyrtec-D] 5-120 mg tablet extended release 12 hr 1 tab PO DAILY RF: 0 Colace 50 mg Capsule 50 mg PO DAILY RF: 0 Primary Care Provider: Ronald Michael Referrals: Ronald Michael DO [Primary Care Provider] - 5-7 Days Disposition Disposition: Home, Self Care
[2021-08-02 14:27] LABS: Absolute Lymphocyte Count 2.61 X10^3/uL (0.83-4.51); Absolute Neutrophil Count 3.2 X10^3/uL (2.0-7.7); Basophil# 0.06 X10^3/uL; Basophil% 0.8 % (0-1); Eosinophil# 0.58 X10^3/uL; Eosinophils% 8.1 % (0-5); Hematocrit 39.2 % (37-47); Lymphocyte # 2.61 X10^3/ul (0.83-4.51); Lymphocyte % 36.6 % (19-41); Mean Corp Hgb Conc 33.2 g/dL (32-36); Mean Corpuscular Volume 93.6 fL (81-99); Mean Platelet Vol. 9.7 fl (6.2-12.0); Monocyte# 0.68 X10^3/uL; Monocyte% 9.5 % (0-10); NRBC Flagged by Analyzer 0 % (0-5); Neutrophil % 44.9 % (47-70); Platelet Count 278 K/mm3 (150-450); RBC Distribution Width CV 13.2 % (11.6-14.6); RBC Distribution Width SD 45.2 fl (35.1-43.9); Red Blood Count 4.19 M/mm3 (4.2-5.4); White Blood Count 7.1 K/mm3 (4.4-11.0)
[2021-08-02 14:46] VITALS: O2SAT 99
[2021-08-02 14:51] LABS: Anion Gap 5 (5-15); BUN 20 mg/dL (7-18); BUN/Creat Ratio 21.2 RATIO (10-20); Calcium,Total 9.5 mg/dL (8.5-10.1); Chloride 104 mmol/L (98-107); Creatinine, Serum 0.94 mg/dL (0.55-1.02); EST Glomerular Filtration Rate 73 mL/min (>60); Est Glom Filt Rate - Afr Amer 89 mL/min (>60); Estimated Creatinine Clearance 84.33 ml/min; Glucose 86 mg/dL (74-106); Potassium 3.4 mmol/L (3.5-5.1); Sodium Level 141 mmol/L (136-145); Troponin-I HS 4 pg/mL (3.0-54.0)
[2021-08-02 14:54] VITALS: BP 123/76; PULSE 82; RESP 16; O2SAT 98
[2021-08-02] MEDS: Aspirin 81 MG TAB.CHEW 324 MG PO (14:59)
[2021-08-02 15:15] VITALS: BP 117/73; PULSE 87; RESP 17; O2SAT 98
[2021-08-02 16:00] LABS: Troponin-I HS < 3 pg/mL (3.0-54.0)
[2021-08-02 16:30] VITALS: BP 126/82; PULSE 74; RESP 16; O2SAT 97
== END 2021-08-02 16:32 | disposition home or self-care (01) ==
PROVIDERS: Emergency Provider Emergency Medicine; PCP Family Medicine
DX: R07.9 Chest pain, unspecified (principal); R00.2 Palpitations; R06.00 Dyspnea, unspecified; R06.02 Shortness of breath; Z79.899 Other long term (current) drug therapy
CPT/HCPCS: 71045; 80048; 84484; 85025; 93005; 99285; A4216

== ENCOUNTER → 2021-08-06 13:15 | Outpatient (CLI) | payer OTHER, SELFPAY | PROVIDERS: PCP Family Medicine; Referring Provider Family Medicine; Visit Provider Family Medicine | DX: R07.89 Other chest pain (principal); R94.31 Abnormal electrocardiogram [ECG] [EKG] | CPT/HCPCS: 93225; 93226 ==

== ENCOUNTER → 2022-03-14 | Outpatient (CLI) | payer OTHER, SELFPAY ==
--- NOTE | 2022-03-14 11:00 | MRI_ITS ---
STUDY: MRI LEFT KNEE REASON FOR EXAM: Left knee pain for 3 months, no new injury, prior ACL repairs. TECHNIQUE: Standardized fat and water weighted pulse sequences were obtained in all 3 orthogonal planes. COMPARISON: MRI images 07/15/2006. FINDINGS: There is a vertical band of signal at the periphery of the posterior horn and body of the medial meniscus (proton-density sagittal images 29, 30; proton-density coronal images 15-18) unchanged since the prior study, either scarring or chronic medial meniscal tear. Normal hyaline cartilage of the medial femorotibial compartment. Normal medial femoral condyle and tibial plateau. Normal medial collateral ligamentous complex (MCL). Normal distal semimembranosus, gracilis and semitendinosus tendons. Normal lateral meniscus. Normal hyaline cartilage of the lateral femorotibial compartment. Normal lateral femoral condyle and tibial plateau. Normal proximal tibiofibular articulation. Normal lateral collateral (fibular) ligament. Normal popliteus tendon. Normal biceps femoris tendon. There is a tear of the anterior cruciate ligament graft (series 7 images 10, 11). Normal posterior cruciate ligament (PCL). Normal congruent patellofemoral articulation. Normal hyaline cartilage of the patellofemoral compartment. Normal medial and lateral patellar retinaculum. Normal visualized quadriceps tendon. Normal patellar tendon. There is postoperative scarring in Hoffa''s fat pad. There is no joint effusion. There is a minimal popliteal cyst (T2 sagittal image 20). There are postoperative changes of the distal femur and proximal tibia from anterior cruciate ligament obstruction. MRI/Lower Ext Joint Only (Routine) IMPRESSION: Tear of the anterior cruciate ligament graft. Signal alteration of the medial meniscus, unchanged since the prior study, either scarring or chronic medial meniscal tear. Electronically Signed: Jorge Nguyen MD at 12:23 EDT ,
== END | disposition home or self-care (01) ==
LOC: MRI 10:11
PROVIDERS: PCP Family Medicine; Referring Provider Orthopaedic Surgery; Visit Provider Orthopaedic Surgery
DX: M25.562 Pain in left knee (principal)
CPT/HCPCS: 73721

== ENCOUNTER → 2022-04-17 | Outpatient (CLI) | payer OTHER, SELFPAY | END | disposition home or self-care (01) | LOC: LABSPEC 10:26 | PROVIDERS: PCP Family Medicine; Visit Provider Physician Assistant | DX: J02.9 Acute pharyngitis, unspecified (principal) | CPT/HCPCS: 87635; U0003; U0005 ==

== ENCOUNTER → 2022-05-03 | Outpatient (CLI) | payer OTHER, SELFPAY ==
[2022-05-03 12:01] LABS: Erythrocyte Sedimentation Rate 5 mm/hr (0-30)
[2022-05-03 12:21] LABS: CRP < 2.90 mg/L (0.0-3.0); Rheumatoid Factor < 10.0 IU/mL (<15)
[2022-05-07 15:18] LABS: ANTINUCLEAR ANTIBODIES DIRECT Negative (Negative)
[2022-05-13 16:09] LABS: Lyme IgG P18 Ab Absent (.); Lyme IgG P23 Ab Absent (.); Lyme IgG P28 Ab Absent (.); Lyme IgG P30 Ab Absent (.); Lyme IgG P39 Ab Absent (.); Lyme IgG P41 Ab Present (.); Lyme IgG P45 Ab Absent (.); Lyme IgG P58 Ab Absent (.); Lyme IgG P66 Ab Absent (.); Lyme IgG P93 Ab Absent (.); Lyme IgM P23 Ab Absent (.); Lyme IgM P39 Ab Absent (.); Lyme IgM P41 Ab Present (.)
[2022-05-13 18:07] LABS: CCP IgG Antibodies 5 units (0-19); Lyme IgG WB Interpretation Negative (.); Lyme IgM WB Interpretation Negative (.)
== END | disposition home or self-care (01) ==
LOC: MTLAB 10:54
PROVIDERS: PCP Family Medicine; Referring Provider Family Medicine; Visit Provider Family Medicine
DX: M13.0 Polyarthritis, unspecified (principal)
CPT/HCPCS: 36415; 85652; 86038; 86140; 86200; 86225; 86235; 86431; 86617

== ENCOUNTER 2022-05-16 16:00 | Outpatient (RCR) | payer OTHER, SELFPAY ==
--- NOTE | 2022-04-10 17:23 | HP.PTEVAL_ITS ---
Patient's Visit Information MICAELA LANGFORD is a 31 year old F referred to Physical Therapy by Dr. Kaden Valiente DO with a diagnosis of Left and Right Knee OA. Date of Evaluation: 04/10/22 Physical Therapist: Virginia Lara DPT - Visit Plan Frequency: 2x /Week Duration: 4 Weeks Plan: 2x a week for 2 week on land and 2x a week for 2 weeks in the pool- focus on extensive HEP for gym and pool- LE and core strength/stabilization. - Subjective She reports that she has a torn left ACL and MCL- has had 2 repairs-this started when she was 9. She now has OA due to all of her surgeries. She did have an MRI. The left knee has gotten worse in the last 4 months- she has done a lot of running in the past year so she has now started swimming instead. She tries to go 4x a week- swims for 45 min to an hour- has not had pain except for yesterday. Pain is located throughout the whole knee. The right one is now sore from compensation. No MRI on the right. Worst: 10 Agg: evenings they ache, pivoting or fast movements. Eases: ice. She has a 1 year old and 4 year old- they are talking about having another one. She has had some pain in the hamstrings. She sees Dr. Flores for chiro- hip pain has diminished. 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 Does not wear orthotics in her shoes- got new shoes for work. Sleep: disturbed-hard to get comfortable- achy at night. Has not had any Cortisone injections. PMHx: none Meds: Zoloft, Ibuprofen - Objective Posture: FH, RS- can correct with verbal cues but does not maintain. Observation: no edema noted Stairs: asc/desc 8 recip with 1 HR- poor control with descent HR/TR: able without pain. SLS: 20 sec increased sway and reports instability. Sit to Stand: no UE A- mild weight shift to the right. Squat: s light weight shift to the right with heels popping up immediately. Palpation: not tender to touch. ROM: 0-135 degrees. Strength: Core: fair minus, Hip: 4+/5, Knee: 4+/5, Ankle: 5/5. Flex: HS: moderate, Gastroc: moderate - Balance/Special Test Scores Lower Extremity Functional Score: 68 - Goals Goal 1:: Patient will be I with HEP and progression Goal Time Frame: 4-6 Weeks Goal 2:: Patient will squat with normal mechanics Goal Time Frame: 4-6 Weeks Goal 3:: Patient will report 80% improvement Goal Time Frame: 4-6 Weeks Goal 4:: Patient will maintain proper posture t/o tx session to demo increased core s/s Goal Time Frame: 4-6 Weeks - Rehabilitation Potential Physical Therapy Diagnosis: Patient presents with hypomobility- she has decreased LE and core strength/stabilization and muscular endurance leading to poor posture and increased instability in bilateral LE. Rehabilitation Potential: Good - Anticipated Interventions Patient/Client Instruction: Educate patient on: Benefits of Fitness Program Therapeutic Exercise to Include: Strength training, Endurance training, Balance training, Coordination, Agility training, Body mechanics, Postural training, Flexibilty training, Gait and locomotor training, Neuromotor development, In an aquatic setting, Dynamic Lumbar Stabilization, Scapular Strength/Stabilization For the Purpose of:: To improve muscle performance and motor function TENS: Yes Cryotherapy (ice pack, ice massage): Yes Thermo therapy (hot pack): Yes Ultrasound (thermal/non thermal): Yes Thank you for the opportunity to evaluate your patient. For Medicare and Medicare HMO plans, please review the plan of care and approve it. It will need to be FAXED BACK to us at [phone] for Medicare purposes. For Medicare only, by signing this I certify the plan of care. Please let me know if there are questions or concerns regarding this plan of care. Physician Signature: Date:
--- NOTE | 2022-05-16 16:45 | HP.PTDCSUM_ITS ---
It has been my pleasure to treat MICAELA LANGFORD referred by Dr. Kaden Valiente, DO, with the diagnosis of Left and Right Knee OA for a total of 8 visit(s). Discharge Date: Please see the following information for a summary of their discharge status. Subjective: Pt reports no pain this date. % Improvement: 90 Objective/Function: B knee pain rated at 0/10. Pt is able to squat with great mechanics. Pt has achieved goals and has returned to a full exercise routine without pain Goal 1:: Patient will be I with HEP and progression Goal Progress: Goal Met Goal 2:: Patient will squat with normal mechanics Goal Progress: Goal Met Goal 3:: Patient will report 80% improvement Goal Progress: Goal Met Goal 4:: Patient will maintain proper posture t/o tx session to demo increased core s/s Goal Progress: Not observed Plan: Discharge to [facility] If there are questions or concerns regarding this patient's physical therapy, please feel free to call me at [phone]. Thank you for the referral of this patient. Sincerely, Carlton Archer, PT, ATC Balance/Gait/Functional tests - Balance/Special Test Scores Lower Extremity Functional Score: 75
== END 2022-05-16 19:00 | disposition home or self-care (01) ==
LOC: PT 16:00
PROVIDERS: PCP Family Medicine; Referring Provider Student in an Organized Health Care Education/Training Program; Visit Provider Student in an Organized Health Care Education/Training Program
DX: M17.32 Unilateral post-traumatic osteoarthritis, left knee (principal); M25.561 Pain in right knee
CPT/HCPCS: 97110; 97113; 97162; 97164

== ENCOUNTER → 2022-06-04 | Outpatient (CLI) | payer OTHER, SELFPAY ==
[2022-06-04 14:48] LABS: Absolute Lymphocyte Count 1.96 X10^3/uL (0.83-4.51); Basophil# 0.03 X10^3/uL; Basophil% 0.3 % (0-1); Eosinophil# 0.06 X10^3/uL; Eosinophils% 0.7 % (0-5); Hematocrit 39.7 % (37-47); Hemoglobin 13.4 g/dL (12.0-15.0); Lymphocyte # 1.96 X10^3/ul (0.83-4.51); Lymphocyte % 22.8 % (19-41); Mean Corp Hgb Conc 33.8 g/dL (32-36); Mean Corpuscular Hgb 30.7 pg (27.0-32.0); Mean Corpuscular Volume 91.1 fL (81-99); Mean Platelet Vol. 9.3 fl (6.2-12.0); Monocyte# 0.57 X10^3/uL; Monocyte% 6.6 % (0-10); NRBC Flagged by Analyzer 0 % (0-5); Neutrophil # 5.95 X10^3/uL (2.7-7.7); Neutrophil % 69.3 % (47-70); Platelet Count 252 K/mm3 (150-450); RBC Distribution Width CV 12.6 % (11.6-14.6); RBC Distribution Width SD 41.9 fl (35.1-43.9); Red Blood Count 4.36 M/mm3 (4.2-5.4); White Blood Count 8.6 K/mm3 (4.4-11.0)
[2022-06-04 15:31] LABS: NATERA MAILED SPECIMEN
[2022-06-04 16:23] LABS: HIV - WCH Non-Reactive (Nonreactive); Hepatitis B Surface Antigen Non-Reactive (Nonreactive); Hepatitis C Antibody Non-Reactive (Nonreactive); Rubella IgG Reactive (Nonreactive); Syphilis Antibodies Non-reactive
[2022-06-04 17:14] LABS: Amphetamine Urine VISTA NEGATIVE (<1000 ng/mL); Barbiturate Urine VISTA NEGATIVE (< 200 ng/mL); Benzodiazepine Urine VISTA NEGATIVE (< 200 ng/mL); Cocaine Urine VISTA NEGATIVE (< 300 ng/mL); Ecstacy Urine VISTA NEGATIVE (< 500 ng/mL); Methadone Urine VISTA NEGATIVE (< 300 ng/mL); PCP Urine VISTA NEGATIVE (< 25 ng/mL); THC Urine VISTA NEGATIVE (< 50 ng/mL); Vista UDS pH Range 5
[2022-06-06 22:07] LABS: Chlamydia By Nucleic Acid AMP Negative (Negative)
[2022-06-08 15:00] LABS: Gonococcus By Nucleic Acid AMP Negative (Negative)
== END | disposition home or self-care (01) ==
PROVIDERS: PCP Family Medicine; Referring Provider Obstetrics & Gynecology; Visit Provider Obstetrics & Gynecology
DX: Z34.91 Encounter for supervision of normal pregnancy, unspecified, first trimester (principal); Z3A.10 10 weeks gestation of pregnancy
CPT/HCPCS: 36415; 80307; 85025; 86703; 86762; 86780; 86803; 86850; 86900; 86901; 87086; 87088; 87340; 87491; 87591

== ENCOUNTER → 2022-07-24 | Outpatient (CLI) | payer OTHER, SELFPAY | END | disposition home or self-care (01) | PROVIDERS: PCP Family Medicine; Referring Provider Obstetrics & Gynecology; Visit Provider Obstetrics & Gynecology | DX: Z34.80 Encounter for supervision of other normal pregnancy, unspecified trimester (principal) | CPT/HCPCS: 36415 ==

== ENCOUNTER → 2022-08-06 | Outpatient (CLI) | payer OTHER, SELFPAY ==
--- NOTE | 2022-08-06 13:26 | US_ITS ---
STUDY: SECOND AND THIRD TRIMESTER OBSTETRICAL ULTRASOUND REASON FOR EXAM: Female, 31 years old anatomy LMP: 03/19/2022 TECHNIQUE: Transabdominal and Transvaginal TECHNICAL QUALITY: Adequate. PRIOR ULTRASOUND: None. FINDINGS: There is a single intrauterine fetus. The fetus is in a breech presentation. There is demonstrated cardiac activity with a heart rate of 145 bpm. There is a normal amniotic fluid volume. The largest amniotic fluid pocket measures 3.9 cm x 6.8 cm. The amniotic fluid index (JAMIL) is with no normal limits cm. The placenta is anterior with a marginal previa. There are Grade 0 placental changes. The cervix measures 4.4 cm in length. The adnexal regions are not visualized. BIOMETRY: BPD: 4.78 cm: 20 weeks, 3 days HC: 17.61 cm: 20 weeks, 1 days AC: 15.6 cm: 20 weeks, 5 days FL: 3.17 cm: 19 weeks, 6 days CI: 79.6% FL/BPD: 66.2% FL/HC: FL/AC: 20.3% HC/AC: 1.13 age by current US: 20 weeks, 1 days. DEVIN by current US: 12/23/2022. Estimated weight: 351 grams, +/- 53 grams, 67.7 %. Age by LMP: 20 weeks, 1 days. DEVIN by LMP: 12/23/2022. ANATOMY: Gender: Male Cranium: Normal lateral ventricles. Normal choroid plexus. Normal cerebellum. Normal cisterna magna. Normal face, nose and lips. Chest: Normal 4-chamber heart. Abdomen/Pelvis: Normal diaphragm. Normal stomach. Normal abdominal wall. Normal cord insertion. Normal 3 vessel cord. Normal kidneys. Normal bladder. Spine: Normal cervical spine. Normal thoracic spine. Normal lumbar spine. Normal sacrum. Extremities: Normal bilateral upper extremities. Normal bilateral lower extremities. IMPRESSION: Single live intrauterine gestation with mean gestational age of 20 weeks and 1 day. Anterior placenta with marginal previa. Follow-up recommended. Electronically Signed: Dmitry Bello MD at 8:37 EST , STUDY: FIRST TRIMESTER OBSTETRICAL ULTRASOUND REASON FOR EXAM: Female, 31 years old . Cervical length. LMP: 03/19/2022 TECHNIQUE: Transvaginal TECHNICAL QUALITY: Adequate. PRIOR ULTRASOUND: None. FINDINGS: Cervical length measures 4.4 cm US/OB Anatomy Scan IMPRESSION: Cervical length measures 4.4 cm. Electronically Signed: Dmitry Bello MD at 8:38 EST ,
== END | disposition home or self-care (01) ==
LOC: OPUS 13:23
PROVIDERS: PCP Family Medicine; Visit Provider Obstetrics & Gynecology
DX: O09.90 Supervision of high risk pregnancy, unspecified, unspecified trimester (principal); Z3A.20 20 weeks gestation of pregnancy; Z36.9 Encounter for antenatal screening, unspecified
CPT/HCPCS: 76805; 76817

== ENCOUNTER → 2022-09-23 | Outpatient (CLI) | payer OTHER, SELFPAY ==
[2022-09-23 09:37] LABS: Absolute Lymphocyte Count 1.52 X10^3/uL (0.83-4.51); Absolute Neutrophil Count 9.1 X10^3/uL (2.0-7.7); Basophil# 0.02 X10^3/uL; Basophil% 0.2 % (0-1); Eosinophil# 0.07 X10^3/uL; Eosinophils% 0.6 % (0-5); Hemoglobin 12.5 g/dL (12.0-15.0); Lymphocyte # 1.52 X10^3/ul (0.83-4.51); Lymphocyte % 13.5 % (19-41); Mean Corp Hgb Conc 32.9 g/dL (32-36); Mean Corpuscular Hgb 30.3 pg (27.0-32.0); Mean Platelet Vol. 9.2 fl (6.2-12.0); Monocyte# 0.54 X10^3/uL; Monocyte% 4.8 % (0-10); NRBC Flagged by Analyzer 0 % (0-5); Neutrophil # 9.09 X10^3/uL (2.7-7.7); Neutrophil % 80.5 % (47-70); Platelet Count 215 K/mm3 (150-450); RBC Distribution Width CV 12.8 % (11.6-14.6); RBC Distribution Width SD 42.9 fl (35.1-43.9); Red Blood Count 4.13 M/mm3 (4.2-5.4); White Blood Count 11.3 K/mm3 (4.4-11.0)
[2022-09-23 09:44] LABS: Glucose Challenge Gest 1H 50g 107 mg/dL (70-140)
[2022-09-23 10:17] LABS: HIV - WCH Non-Reactive (Nonreactive); Syphilis Antibodies Non-reactive
== END | disposition home or self-care (01) ==
LOC: PAVLAB 09:02
PROVIDERS: PCP Family Medicine; Referring Provider Obstetrics & Gynecology; Visit Provider Obstetrics & Gynecology
DX: O09.90 Supervision of high risk pregnancy, unspecified, unspecified trimester (principal)
CPT/HCPCS: 36415; 82950; 85025; 86703; 86780

== ENCOUNTER → 2022-10-03 | Outpatient (CLI) | payer OTHER, SELFPAY ==
--- NOTE | 2022-10-03 15:51 | US_ITS ---
STUDY: SECOND AND THIRD TRIMESTER OBSTETRICAL ULTRASOUND REASON FOR EXAM: Female, 31 years old marginal previa follow up TECHNIQUE: Transabdominal PRIOR ULTRASOUND: 08/06/2022. FINDINGS: There is a single intrauterine fetus. The fetus is in a cephalic presentation. There is demonstrated cardiac activity with a heart rate of 136 bpm. There is a normal amniotic fluid volume. The amniotic fluid index (JAMIL) is 7.2 cm. The placenta is anterior in location and is not low lying. There are Grade 0 placental changes. The cervix measures 3.2 cm in length. The adnexal regions are not visualized. BPD: 7.1 cm = 28 weeks, 3 day(s) HC: 26.9 cm = 29 weeks, 2 day(s) AC: 26.2 cm = 30 weeks, 2 day(s) FL: 5.5cm = 29 weeks, 0 day(s) EGA by ultrasound: 28 weeks 5 day(s) DEVIN by ultrasound: 12/24/2022 Estimated weight: 1440 grams Weight percentile: 86% US/OB Limited With Biometrics IMPRESSION: Living intrauterine with estimated gestational age of 28 weeks and 5 days. Anterior placenta is not low-lying. Electronically Signed: Andrea Kuo MD at 16:57 EST ,
== END | disposition home or self-care (01) ==
LOC: US 15:22
PROVIDERS: PCP Family Medicine; Referring Provider Obstetrics & Gynecology; Visit Provider Obstetrics & Gynecology
DX: O44.20 Partial placenta previa NOS or without hemorrhage, unspecified trimester (principal)
CPT/HCPCS: 76816

== ENCOUNTER 2022-11-13 18:08 | Outpatient (CLI) | payer OTHER, SELFPAY ==
[2022-11-13 18:25] VITALS: BP 118/70; PULSE 99
[2022-11-13 18:27] VITALS: BP 118/70; PULSE 97; PULSE 99; TEMP 37.1; O2SAT 97
[2022-11-13 18:35] VITALS: BMI 29.9
--- NOTE | 2022-11-19 13:51 | OB.TRI.HP_ITS ---
HPI - General General Date of Admission: 11/13/22 HPI Narrative PETRA LANGFORD, is a 32 y/o @ 34 weeks 1 day who presents to L&D with the complaint of cramping. Her is complicated by a marginal placenta previa. Maternal Data Information DEVIN Calculator Estimated Delivery Date Method Current WG Current Estimate 12/24/22 Ultrasound #1 35w 0d Other Estimates 12/30/22 LMP (Certain) 34w 1d [facility] Medical History Congestion of nasal sinus Cough COVID-19 virus not detected Influenza vaccine administered Spontaneous Home Medications sertraline 100 mg tablet (Zoloft) 100 mg PO DAILY 90 days #90 tabs 11/02/21 [Rx Last Taken 11/12/22 22:00] multivitamin no.47-iron fum 27 mg-folate no.1 1 mg-dha 300 mg capsule (PNV-DHA) 1 cap PO DAILY 05/28/22 [History Last Taken 11/12/22 22:00] Allergy/AdvReac Type Severity Reaction Status Date / Time penicillin G Allergy Mild Hives Verified 11/08/22 13:56 Family History Father Diabetes Surgical History H/O dilation and curettage H/O knee surgery Social History adopted: No household members: spouse and children housing: house number of children: 2 current occupational status: employed 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 occupational exposures/hazards: Yes pets and animals: Yes pets and animals: dog(s) history of recent travel: No sexually active: Yes Smoking Status: Never smoker second hand exposure: No alcohol intake: never substance use type: does not use well-balanced diet: daily or most days caffeine: Yes Type: other Number of servings: 1 eating out: rarely or never during the past year weight has: remained stable what type of physical activity do you participate in: walking, bicycling and swimming frequency: 5-6 times per week duration: 45-60 minutes/day katie/confucianist: Denominational seatbelt use: always do you feel safe at home: Yes additional social history: [email or web address] 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 Date Name GA/Weeks Outcome Route Bth Weight Infant Gen Labor Lgth Anesthesia Del Locatn Provider FOB Unknown 09/24/2017 Yoan 38 live - full term 8 Mal e epidural Matt DEBBY 08/07/20 Ariana 40 live - full term Female [employer] Marcanthony Delivery Date: Last Updated by: Debbie Pealez Visit Details Expected Delivery Route/Plan Labor Preferences- CB/BF classes: [] labor support person: [] labor intervention preferences: [] pain management options preferred: [] cut cord/dad catch: [] : [] PP control planned: [] discussed possible routes of delivery and associated risks: [] special requests: [] Plans Covid status: [] Flu vaccine: [] Tdap vaccine: [] Rhogam: [] LARC form signed: [] Problem list reviewed and updated with the most current plan of care details and appropriate orders placed. Relevant counseling for the gestational age provided. Continue routine care and follow up unless otherwise noted in visit notes/problem list details OB Flowsheet Initial Weight: Not Recorded Date -?-?-?-?-?-?-?-?-?-?-?-?- EGA Weight BP Urine Prot -?-?-?-?-?-?-?-?-?-?-?-?- Glucose FHR FuHt Pres Dilation -?-?-?-?-?-?-?-?-?-?-?-?- Effaced St Visit Note 06/04/22 -?-?-?-?-?-?-?-?-?-?-?-?- 11w 0d 158 lb 106/70 -?-?-?-?-?-?-?-?-?-?-?-?- 169 -?-?-?-?-?-?-?-?-?-?-?-?- JV- CRL off by a week. new devin given. 07/05/22 -?-?-?-?-?-?-?-?-?-?-?-?- 15w 3d 164 lb 6 oz 115/68 Nega tive -?-?-?-?-?-?-?-?-?-?-?-?- Negative 145 -?-?-?-?-?-?-?-?-?-?-?-?- JV- normal nater a. pt wants afp. 08/02/22 -?-?-?-?-?-?-?-?-?-?-?-?- 19w 3d 167 lb 110/73 -?-?-?-?-?-?-?-?-?-?-?-?- 140 -?-?-?-?-?-?-?-?-?-?-?-?- SM- no vb lof g ood fm no regualrctx 08/29/22 -?-?-?-?-?-?-?-?-?-?-?-?- 23w 2d 172 lb 6 oz 112/72 -?-?-?-?-?-?-?-?-?-?-?-?- 153 -?-?-?-?-?-?-?-?-?-?-?-?- JV-pt has a esthela inal placenta previa. will need rpt scan at 28 weeks. 09/26/22 -?-?-?-?-?-?-?-?-?-?-?-?- 27w 2d 180 lb 118/75 Negative -?-?-?-?-?-?-?-?-?-?-?-?- Negative 145 27 -?-?-?-?-?-?-?-?-?-?-?-?- SM- no vb lof go od fm no reuglar ctx 10/24/22 -?-?-?-?-?-?-?-?-?-?-?-?- 31w 2d 184 lb 106/66 Negative -?-?-?-?-?-?-?-?-?-?-?-?- Negative 124 30 -?-?-?-?-?-?-?-?-?-?-?-?- JV- no lof, vagi nal bleeding, or dec fm. ultrasound shows resolution of previa. needs tdap today. 11/08/22 -?-?-?-?-?-?-?-?-?-?-?-?- 33w 3d 187 lb 117/83 Negative -?-?-?-?-?-?-?-?-?-?-?-?- Negative 139 31 -?-?-?-?-?-?-?-?-?-?-?-?- JV- no lof, vagi nal bleeding, or dec fm. no complaints. ROS Constitutional Constitutional: Reports systems reviewed and no addt'l complaints, except as documented Gastrointestinal Gastrointestinal: Denies bloating, constipation, cramping, diarrhea, nausea or vomiting Genitourinary Genitourinary: Reports other Details: Denies vaginal odor, vaginal bleeding, or vaginal discharge ; Denies difficulty urinating or flank pain Physical Exam HEENT normocephalic Resp normal respiratory effort and normal air movement no CVA tenderness Extremity normal to inspection General Extremity: edema bilateral (trace ) NST FHR Rate Baby A Baseline: 140 Variability:: Moderate Accelerations:: 15 x 15 Decelerations:: None NST Reactive:: Yes FHR Category:: Category I Assessment & Plan (1) False labor: (2) Marginal placenta previa: COMMENT: Repeat scan at 28 weeks, resolved (3) Supervision of high risk , antepartum: COMMENT: PRR , DEVIN 12/30/22 boy PC Ariana Milton, Sukhjinder (4) : QUALIFIERS: Weeks of gestation: 33 weeks Qualified Code(s): Z3A.33 - 33 weeks gestation of COMMENT: NIPT low risk, nl afp. declined carrier testing. nl anatomy US. (5) Anxiety: COMMENT: related to previous SAB. Declines medication (6) Scoliosis: QUALIFIERS: Scoliosis type: idiopathic Idiopathic scoliosis type: other Spinal region: thoracolumbar Qualified Code(s): M41.25 - Other idiopathic scoliosis, thoracolumbar region COMMENT: left PLAN: Plan cervix is closed, thick and high, No complaints other than some cramping. encouraged to drink more fluids and call or return if pain worsens. Charges/Coding Multi Select Codes Urinary/Genital Urinary/Genital CPT Codes: 83179-77 non-stress test Interp
== END 2022-11-13 19:15 | disposition home or self-care (01) ==
LOC: WPOUT 18:17 → WP 18:17
PROVIDERS: PCP Family Medicine; Visit Provider Obstetrics & Gynecology
DX: O47.03 False labor before 37 completed weeks of gestation, third trimester (principal); O44.23 Partial placenta previa NOS or without hemorrhage, third trimester; O99.891 Other specified diseases and conditions complicating pregnancy; M41.25 Other idiopathic scoliosis, thoracolumbar region; Z3A.33 33 weeks gestation of pregnancy
CPT/HCPCS: 59025; 59050; 99221; G0378

== ENCOUNTER → 2022-11-26 | Outpatient (CLI) | payer OTHER, SELFPAY | END | disposition home or self-care (01) | LOC: LABSPEC 10:45 | PROVIDERS: PCP Family Medicine; Referring Provider Nurse Practitioner Women's Health; Visit Provider Nurse Practitioner Women's Health | DX: Z34.90 Encounter for supervision of normal pregnancy, unspecified, unspecified trimester (principal) | CPT/HCPCS: 87081 ==

== ENCOUNTER 2022-12-20 19:18 | Outpatient (CLI) | payer OTHER, SELFPAY ==
[2022-12-20 19:27] VITALS: BMI 31.0
[2022-12-20 19:38] VITALS: BP 120/76; PULSE 75; O2SAT 98
[2022-12-20 19:39] VITALS: TEMP 36.7
--- NOTE | 2022-12-20 19:43 | OB.TRI.HP_ITS ---
HPI - General General Date of Admission: 12/20/22 HPI Narrative PETRA LANGFORD, is a 32 @ 39 weeks3 days who presents to L&D with contractions. She was on shift in the pacu and was feeling contractions q 10 minutes and wanted to get checked before she went home Maternal Data Information DEVIN Calculator Estimated Delivery Date Method Current WG Current Estimate 12/24/22 Ultrasound #1 39w 3d Other Estimates 12/30/22 LMP (Certain) 38w 4d PFSH [facility] Medical History Congestion of nasal sinus Cough COVID-19 virus not detected Influenza vaccine administered Spontaneous Home Medications sertraline 100 mg tablet (Zoloft) 100 mg PO DAILY 90 days #90 tabs 11/02/21 [Rx Last Taken 11/12/22 22:00] multivitamin no.47-iron fum 27 mg-folate no.1 1 mg-dha 300 mg capsule (PNV-DHA) 1 cap PO DAILY 05/28/22 [History Last Taken 11/12/22 22:00] Allergy/AdvReac Type Severity Reaction Status Date / Time penicillin G Allergy Mild Hives Verified 12/17/22 08:43 Family History Father Diabetes Surgical History H/O dilation and curettage H/O knee surgery Social History adopted: No household members: spouse and children housing: house number of children: 2 current occupational status: employed 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 occupational exposures/hazards: Yes pets and animals: Yes pets and animals: dog(s) history of recent travel: No sexually active: Yes Smoking Status: Never smoker second hand exposure: No alcohol intake: never substance use type: does not use well-balanced diet: daily or most days caffeine: Yes Type: other Number of servings: 1 eating out: rarely or never during the past year weight has: remained stable what type of physical activity do you participate in: walking, bicycling and swimming frequency: 5-6 times per week duration: 45-60 minutes/day katie/mormon: Muslim seatbelt use: always do you feel safe at home: Yes additional social history: [employer] 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 Date Name GA/Weeks Outcome Route Bth Weight Gen Labor Lgth Anesthesia Del Locatn Provider FOB Unknown 09/24/2017 Yoan 38 live - full term 8 Mal e epidural Matt DEBBY 08/07/20 Ariana 40 live - full term Female [employer] Marcanthony Delivery Date: Last Updated by: Debbie Pelaez Visit Details Expected Delivery Route/Plan Labor Preferences- labor support person: Sukhjinder labor intervention preferences: none pain management options preferred: epidural cut cord/dad catch: yes : yes PP control planned: [] discussed possible routes of delivery and associated risks: [] special requests: [] Plans Covid status: discussed Flu vaccine: discussed Tdap vaccine: given Rhogam: na LARC form signed: declined movement and labor precautions reviewed. Problem list reviewed and updated with the most current plan of care details and appropriate orders placed. Relevant counseling for the gestational age provided. Continue routine care and follow up unless otherwise noted in visit notes/problem list details OB Flowsheet Initial Weight: Not Recorded Date -?-?-?-?-?-?-?-?-?-?-?-?- EGA Weight BP Urine Prot -?-?-?-?-?-?-?-?-?-?-?-?- Glucose FHR FuHt Pres Dilation -?-?-?-?-?-?-?-?-?-?-?-?- Effaced St Visit Note 06/04/22 -?-?-?-?-?-?-?-?-?-?-?-?- 11w 0d 158 lb 106/70 -?-?-?-?-?-?-?-?-?-?-?-?- 169 -?-?-?-?-?-?-?-?-?-?-?-?- JV- CRL off by a week. new devin given. 07/05/22 -?-?-?-?-?-?-?-?-?-?-?-?- 15w 3d 164 lb 6 oz 115/68 Nega tive -?-?-?--?-?-?-?-?-?-?-?-?- Negative 145 -?-?-?-?-?-?-?-?-?-?-?-?- JV- normal nater a. pt wants afp. 08/02/22 -?-?-?-?-?-?-?-?-?-?-?-?- 19w 3d 167 lb 110/73 -?-?-?-?-?-?-?-?-?-?-?-?- 140 -?-?-?-?-?-?-?-?-?-?-?-?- SM- no vb lof g ood fm no regualrctx 08/29/22 -?-?-?-?-?-?-?-?-?-?-?-?- 23w 2d 172 lb 6 oz 112/72 -?-?-?-?-?-?-?-?-?-?-?-?- 153 -?-?-?-?-?-?-?-?-?-?-?-?- JV-pt has a esthela inal placenta previa. will need rpt scan at 28 weeks. 09/26/22 -?-?-?-?-?-?-?-?-?-?-?-?- 27w 2d 180 lb 118/75 Negative -?-?-?-?-?-?-?-?-?-?-?-?- Negative 145 27 -?-?-?-?-?-?-?-?--?-?-?-?- SM- no vb lof go od fm no reuglar ctx 10/24/22 -?-?-?-?-?-?-?-?-?-?-?-?- 31w 2d 184 lb 106/66 Negative -?-?-?-?-?-?-?-?-?-?-?-?- Negative 124 30 -?-?-?-?-?-?-?-?-?-?-?-?- JV- no lof, vagi nal bleeding, or dec fm. ultrasound shows resolution of previa. needs tdap today. 11/08/22 -?-?-?-?--?-?-?-?-?-?-?-?- 33w 3d 187 lb 117/83 Negative -?-?-?-?-?-?-?-?-?-?-?-?- Negative 139 31 -?-?-?-?-?-?-?-?-?-?-?-?- JV- no lof, vagi nal bleeding, or dec fm. no complaints. 11/21/22 -?-?-?-?-?-?-?-?-?-?-?-?- 35w 2d 188 lb 7 oz 124/64 Nega tive -?-?-?-?-?-?-?-?-?-?-?-?- Negative 140 36 Cephalic -?-?-?-?-?-?-?-?-?-?-?-?- - no vb lof go od fm no regular ctx 11/26/22 -?-?-?-?-?-?-?-?-?-?-?-?- 36w 0d 190 lb 4 oz 108/64 Nega tive -?-?-?-?-?-?-?-?-?-?-?-?- Negative 153 36 Cephalic 2 -?-?-?-?-?-?-?-?-?-?-?-?- 50 -2 -No Vb, LOF or CTX. GBS done 12/05/22 -?-?-?-?-?-?-?-?-?-?-?-?- 37w 2d 191 lb 98/67 Negative -?-?-?-?-?-?-?-?-?-?-?-?- Negative 147 38 Cephalic 2 .5 -?-?-?-?-?-?-?-?-?-?-?-?- 80 -1 JV- no lof , vaginal bleeding, or dec fm. labor precautions discussed. 12/12/22 -?-?-?-?-?-?-?-?-?-?-?-?- 38w 2d 192 lb 4 oz 109/71 Nega tive -?-?-?-?-?-?-?-?-?-?-?-?- Negative 140 110 38 Cephalic 2.5 -?-?-?-?-?-?-?-?-?-?-?-?- 80 -1 SM- no vb lof good fm no regular ctx SM- no vb lof good fm no reg ular ctx unclear baseline- NST done 12/17/22 -?-?-?-?-?-?-?-?-?-?-?-?- 39w 0d 193 lb 2 oz 119/77 Nega tive -?-?-?-?-?-?-?-?-?-?-?-?- Negative 145 39 Cephalic 3 -?-?-?-?-?-?-?-?-?-?-?-?- 80 -1 JV- no lof ,vaginal bleeding ,or dec fm. Physical Exam Narrative: cx is /-2 (unchanged from prior exam) Assessment & Plan (1) Supervision of high risk , antepartum: COMMENT: PRR , DEVIN 12/30/22 boy Ariana Tripp, Sukhjinder (2) : QUALIFIERS: Weeks of gestation: 39 weeks Qualified Code(s): Z3 A.39 - 39 weeks gestation of COMMENT: Neg GBS NIPT low risk, nl afp. declined carrier testing. nl anatomy US. (3) Anxiety: COMMENT: related to previous SAB. Declines medication (4) Scoliosis: QUALIFIERS: Scoliosis type: idiopathic Idiopathic scoliosis type: other Spinal region: thoracolumbar Qualified Code(s): M41.25 - Other idiopathic scoliosis, thoracolumbar region COMMENT: left (5) False labor at or after 37 completed weeks of gestation: PLAN: Plan plan to dc to home. labor precautions discussed.
--- NOTE | 2022-12-20 19:43 | OB.TRI.NOTE ---
HPI - General General Date of Admission: 12/20/22 HPI Narrative PETRA LANGFORD, is a 32 @ 39 weeks3 days who presents to L&D with contractions. She was on shift in the pacu and was feeling contractions q 10 minutes and wanted to get checked before she went home Maternal Data Information DEVIN Calculator Estimated Delivery Date Method Current WG Current Estimate 12/24/22 Ultrasound #1 39w 3d Other Estimates 12/30/22 LMP (Certain) 38w 4d PFSH [facility] Medical History Congestion of nasal sinus Cough COVID-19 virus not detected Influenza vaccine administered Spontaneous Home Medications sertraline 100 mg tablet (Zoloft) 100 mg PO DAILY 90 days #90 tabs 11/02/21 [Rx Last Taken 11/12/22 22:00] multivitamin no.47-iron fum 27 mg-folate no.1 1 mg-dha 300 mg capsule (PNV-DHA) 1 cap PO DAILY 05/28/22 [History Last Taken 11/12/22 22:00] Allergy/AdvReac Type Severity Reaction Status Date / Time penicillin G Allergy Mild Hives Verified 12/17/22 08:43 Family History Father Diabetes Surgical History H/O dilation and curettage H/O knee surgery Social History adopted: No household members: spouse and children housing: house number of children: 2 current occupational status: employed 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: Yes pets and animals: Yes pets and animals: dog(s) history of recent travel: No sexually active: Yes Smoking Status: Never smoker second hand exposure: No alcohol intake: never substance use type: does not use well-balanced diet: daily or most days caffeine: Yes Type: other Number of servings: 1 eating out: rarely or never during the past year weight has: remained stable what type of physical activity do you participate in: walking, bicycling and swimming frequency: 5-6 times per week duration: 45-60 minutes/day katie/sabianist: Buddhist seatbelt use: always do you feel safe at home: Yes additional social history: [employer] 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 Date Name GA/Weeks Outcome Route Bth Weight Gen Labor Lgth Anesthesia Del Locatn Provider FOB Unknown 09/24/2017 Yoan 38 live - full term 8 Male epidural Matt DEBBY 08/07/20 Ariana 40 live - full term Female [employer] Marcanthony Delivery Date: Last Updated by: Debbie Pelaez Visit Details Expected Delivery Route/Plan Labor Preferences- labor support person: Sukhjinder labor intervention preferences: none pain management options preferred: epidural cut cord/dad catch: yes : yes PP control planned: [] discussed possible routes of delivery and associated risks: [] special requests: [] Plans Covid status: discussed Flu vaccine: discussed Tdap vaccine: given Rhogam: na LARC form signed: declined movement and labor precautions reviewed. Problem list reviewed and updated with the most current plan of care details and appropriate orders placed. Relevant counseling for the gestational age provided. Continue routine care and follow up unless otherwise noted in visit notes/problem list details OB Flowsheet Initial Weight: Not Recorded Date <del>?</del> EGA Weight BP Urine Prot <del>?</del> Glucose FHR FuHt Pres Dilation <del>?</del> Effaced St Visit Note 06/04/22 <del>?</del> 11w 0d 158 lb 106/70 <del>?</del> 169 <del>?</del> JV- CRL off by a week. new devin given. 07/05/22 <del>?</del> 15w 3d 164 lb 6 oz 115/68 Negative <del>?</del> Negative 145 <del>?</del> JV- normal nish. pt wants afp. 08/02/22 <del>?</del> 19w 3d 167 lb 110/73 <del>?</del> 140 <del>?</del> SM- no vb lof good fm no regualrctx 08/29/22 <del>?</del> 23w 2d 172 lb 6 oz 112/72 <del>?</del> 153 <del>?</del> JV-pt has a marginal placenta previa. will need rpt scan at 28 weeks. 09/26/22 <del>?</del> 27w 2d 180 lb 118/75 Negative <del>?</del> Negative 145 27 <del>?</del> SM- no vb lof good fm no reuglar ctx 10/24/22 <del>?</del> 31w 2d 184 lb 106/66 Negative <del>?</del> Negative 124 30 <del>?</del> JV- no lof, vaginal bleeding, or dec fm. ultrasound shows resolution of previa. needs tdap today. 11/08/22 <del>?</del> 33w 3d 187 lb 117/83 Negative <del>?</del> Negative 139 31 <del>?</del> JV- no lof, vaginal bleeding, or dec fm. no complaints. 11/21/22 <del>?</del> 35w 2d 188 lb 7 oz 124/64 Negative <del>?</del> Negative 140 36 Cephalic <del>?</del> SM- no vb lof good fm no regular ctx 11/26/22 <del>?</del> 36w 0d 190 lb 4 oz 108/64 Negative <del>?</del> Negative 153 36 Cephalic 2 <del>?</del> 50 -2 MH-No Vb, LOF or CTX. GBS done 12/05/22 <del>?</del> 37w 2d 191 lb 98/67 Negative <del>?</del> Negative 147 38 Cephalic 2.5 <del>?</del> 80 -1 JV- no lof, vaginal bleeding, or dec fm. labor precautions discussed. 12/12/22 <del>?</del> 38w 2d 192 lb 4 oz 109/71 Negative <del>?</del> Negative 140 110 38 Cephalic 2.5 <del>?</del> 80 -1 SM- no vb lof good fm no regular ctx SM- no vb lof good fm no regular ctx unclear baseline- NST done 12/17/22 <del>?</del> 39w 0d 193 lb 2 oz 119/77 Negative <del>?</del> Negative 145 39 Cephalic 3 <del>?</del> 80 -1 JV- no lof ,vaginal bleeding ,or dec fm. Physical Exam Narrative: cx is /-2 (unchanged from prior exam) Assessment & Plan (1) Supervision of high risk , antepartum: COMMENT: PRR , DEVIN 12/30/22 boy Ariana Tripp, Sukhjinder (2) : QUALIFIERS: Weeks of gestation: 39 weeks Qualified Code(s): Z3A.39 - 39 weeks gestation of COMMENT: Neg GBS NIPT low risk, nl afp. declined carrier testing. nl anatomy US. (3) Anxiety: COMMENT: related to previous SAB. Declines medication (4) Scoliosis: QUALIFIERS: Scoliosis type: idiopathic Idiopathic scoliosis type: other Spinal region: thoracolumbar Qualified Code(s): M41.25 - Other idiopathic scoliosis, thoracolumbar region COMMENT: left (5) False labor at or after 37 completed weeks of gestation: PLAN: Plan plan to dc to home. labor precautions discussed.
== END 2022-12-20 19:55 | disposition home or self-care (01) ==
LOC: WPOUT 19:27 → WP 19:27
PROVIDERS: PCP Family Medicine; Visit Provider Obstetrics & Gynecology
DX: O47.1 False labor at or after 37 completed weeks of gestation (principal); O09.93 Supervision of high risk pregnancy, unspecified, third trimester; Z3A.39 39 weeks gestation of pregnancy; O99.891 Other specified diseases and conditions complicating pregnancy; M41.25 Other idiopathic scoliosis, thoracolumbar region
CPT/HCPCS: 59025; 59050; 99221; G0378

== ENCOUNTER 2022-12-25 18:20 | Outpatient (CLI) | payer OTHER, SELFPAY ==
[2022-12-25 18:37] VITALS: PULSE 82; TEMP 36.6; O2SAT 98
[2022-12-25 18:38] VITALS: BP 119/69; PULSE 81
[2022-12-25 19:32] VITALS: BMI 31.0
--- NOTE | 2022-12-25 20:19 | OB.TRI.NOTE ---
HPI - General HPI Narrative PETRA LANGFORD, is a 32 y/o@ 40 weeks 2 days who presents to L&D with mild contractions after membranes were stripped this am. She denies lof, vaginal bleeding, or dec fm. Her cx was checked per the nurse on L&D and was found to be unchanged from her office visit earlier today. Maternal Data Information DEVIN Calculator Estimated Delivery Date Method Current WG Current Estimate 12/24/22 Ultrasound #1 40w 3d Other Estimates 12/30/22 LMP (Certain) 39w 4d PFSH [facility] Medical History Congestion of nasal sinus Cough COVID-19 virus not detected Influenza vaccine administered Spontaneous Home Medications multivitamin no.47-iron fum 27 mg-folate no.1 1 mg-dha 300 mg capsule (PNV-DHA) 1 cap PO DAILY 05/28/22 [History Last Taken 11/12/22 22:00] sertraline 100 mg tablet (Zoloft) 100 mg PO DAILY anxiety 12/25/22 [History Last Taken Unknown] Allergy/AdvReac Type Severity Reaction Status Date / Time penicillin G Allergy Mild Hives Verified 12/25/22 11:45 Family History Father Diabetes Surgical History H/O dilation and curettage H/O knee surgery Social History adopted: No household members: spouse and children housing: house number of children: 2 current occupational status: employed 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 occupational exposures/hazards: Yes pets and animals: Yes pets and animals: dog(s) history of recent travel: No sexually active: Yes Smoking Status: Never smoker second hand exposure: No alcohol intake: never substance use type: does not use well-balanced diet: daily or most days caffeine: Yes Type: other Number of servings: 1 eating out: rarely or never during the past year weight has: remained stable what type of physical activity do you participate in: walking, bicycling and swimming frequency: 5-6 times per week duration: 45-60 minutes/day katie/anabaptist: Worship seatbelt use: always do you feel safe at home: Yes additional social history: [employer] 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 Date Name GA/Weeks Outcome Route Bth Weight Infant Gen Labor Lgth Anesthesia Del Naifatn Provider FOB Unknown 09/24/2017 Yoan 38 live - full term 8 Male epidural Matt DEBBY 08/07/20 Ariana 40 live - full term Female [employer] [employer] [facility] Marcanthony Delivery Date: Last Updated by: Debbie Pelaez Visit Details Expected Delivery Route/Plan Labor Preferences- labor support person: Sukhjinder labor intervention preferences: none pain management options preferred: epidural cut cord/dad catch: yes : yes PP control planned: [] discussed possible routes of delivery and associated risks: [] special requests: [] Plans Covid status: discussed Flu vaccine: discussed Tdap vaccine: given Rhogam: na LARC form signed: declined movement and labor precautions reviewed. Problem list reviewed and updated with the most current plan of care details and appropriate orders placed. Relevant counseling for the gestational age provided. Continue routine care and follow up unless otherwise noted in visit notes/problem list details OB Flowsheet Initial Weight: Not Recorded Date <del>?</del> EGA Weight BP Urine Prot <del>?</del> Glucose FHR FuHt Pres Dilation <del>?</del> Effaced St Visit Note 06/04/22 <del>?</del> 11w 0d 158 lb 106/70 <del>?</del> 169 <del>?</del> JV- CRL off by a week. new devin given. 07/05/22 <del>?</del> 15w 3d 164 lb 6 oz 115/68 Negative <del>?</del> Negative 145 <del>?</del> JV- normal nish. pt wants afp. 08/02/22 <del>?</del> 19w 3d 167 lb 110/73 <del>?</del> 140 <del>?</del> SM- no vb lof good fm no regualrctx 08/29/22 <del>?</del> 23w 2d 172 lb 6 oz 112/72 <del>?</del> 153 <del>?</del> JV-pt has a marginal placenta previa. will need rpt scan at 28 weeks. 09/26/22 <del>?</del> 27w 2d 180 lb 118/75 Negative <del>?</del> Negative 145 27 <del>?</del> SM- no vb lof good fm no reuglar ctx 10/24/22 <del>?</del> 31w 2d 184 lb 106/66 Negative <del>?</del> Negative 124 30 <del>?</del> JV- no lof, vaginal bleeding, or dec fm. ultrasound shows resolution of previa. needs tdap today. 11/08/22 <del>?</del> 33w 3d 187 lb 117/83 Negative <del>?</del> Negative 139 31 <del>?</del> JV- no lof, vaginal bleeding, or dec fm. no complaints. 11/21/22 <del>?</del> 35w 2d 188 lb 7 oz 124/64 Negative <del>?</del> Negative 140 36 Cephalic <del>?</del> SM- no vb lof good fm no regular ctx 11/26/22 <del>?</del> 36w 0d 190 lb 4 oz 108/64 Negative <del>?</del> Negative 153 36 Cephalic 2 <del>?</del> 50 -2 MH-No Vb, LOF or CTX. GBS done 12/05/22 <del>?</del> 37w 2d 191 lb 98/67 Negative <del>?</del> Negative 147 38 Cephalic 2.5 <del>?</del> 80 -1 JV- no lof, vaginal bleeding, or dec fm. labor precautions discussed. 12/12/22 <del>?</del> 38w 2d 192 lb 4 oz 109/71 Negative <del>?</del> Negative 140 110 38 Cephalic 2.5 <del>?</del> 80 -1 SM- no vb lof good fm no regular ctx SM- no vb lof good fm no regular ctx unclear baseline- NST done 12/17/22 <del>?</del> 39w 0d 193 lb 2 oz 119/77 Negative <del>?</del> Negative 145 39 Cephalic 3 <del>?</del> 80 -1 JV- no lof ,vaginal bleeding ,or dec fm. 12/25/22 <del>?</del> 40w 1d 197 lb 8 oz 124/76 Negative <del>?</del> Negative 132 40 Cephalic 4 <del>?</del> 80 -1 MH-No VB, LOF or reg CTX. Membrane sweep. ROS Constitutional Constitutional: Reports systems reviewed and no addt'l complaints, except as documented Gastrointestinal Gastrointestinal: Denies bloating, constipation, cramping, diarrhea, nausea or vomiting Genitourinary Genitourinary: Reports other Details: Denies vaginal odor, vaginal bleeding, or vaginal discharge ; Denies difficulty urinating or flank pain NST FHR Rate Baby A Baseline: 140 Variability:: Moderate Accelerations:: 15 x 15 Decelerations:: None NST Reactive:: Yes FHR Category:: Category I Assessment & Plan (1) False labor at or after 37 completed weeks of gestation: PLAN: no change after several hours of monitoring. patient requested to be discharged to home Charges/Coding Multi Select Codes Urinary/Genital Urinary/Genital CPT Codes: 75865-99 non-stress test Interp
--- NOTE | 2022-12-25 20:19 | OB.TRI.HP_ITS ---
HPI - General HPI Narrative PETRA LANGFORD, is a 32 y/o@ 40 weeks 2 days who presents to L&D with mild contractions after membranes were stripped this am. She denies lof, vaginal bleeding, or dec fm. Her cx was checked per the nurse on L&D and was found to be unchanged from her office visit earlier today. Maternal Data Information DEVIN Calculator Estimated Delivery Date Method Current WG Current Estimate 12/24/22 Ultrasound #1 40w 3d Other Estimates 12/30/22 LMP (Certain) 39w 4d PFSH [facility] Medical History Congestion of nasal sinus Cough COVID-19 virus not detected Influenza vaccine administered Spontaneous Home Medications multivitamin no.47-iron fum 27 mg-folate no.1 1 mg-dha 300 mg capsule (PNV-DHA) 1 cap PO DAILY 05/28/22 [History Last Taken 11/12/22 22:00] sertraline 100 mg tablet (Zoloft) 100 mg PO DAILY anxiety 12/25/22 [History Last Taken Unknown] Allergy/AdvReac Type Severity Reaction Status Date / Time penicillin G Allergy Mild Hives Verified 12/25/22 11:45 Family History Father Diabetes Surgical History H/O dilation and curettage H/O knee surgery Social History adopted: No household members: spouse and children housing: house number of children: 2 current occupational status: employed 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 occupational exposures/hazards: Yes pets and animals: Yes pets and animals: dog(s) history of recent travel: No sexually active: Yes Smoking Status: Never smoker second hand exposure: No alcohol intake: never substance use type: does not use well-balanced diet: daily or most days caffeine: Yes Type: other Number of servings: 1 eating out: rarely or never during the past year weight has: remained stable what type of physical activity do you participate in: walking, bicycling and swimming frequency: 5-6 times per week duration: 45-60 minutes/day katie/yazidism: Alevism seatbelt use: always do you feel safe at home: Yes additional social history: [employer] 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 Date Name GA/Weeks Outcome Route Bth Weight Infant Gen Labor Lgth Anesthesia Del Locatn Provider FOB Unknown 09/24/2017 Yoan 38 live - full term 8 Mal e epidural Matt DEBBY 08/07/20 Ariana 40 live - full term Female [employer] Marcanthony Delivery Date: Last Updated by: Debbie Pelaez Visit Details Expected Delivery Route/Plan Labor Preferences- labor support person: Sukhjinder labor intervention preferences: none pain management options preferred: epidural cut cord/dad catch: yes : yes PP control planned: [] discussed possible routes of delivery and associated risks: [] special requests: [] Plans Covid status: discussed Flu vaccine: discussed Tdap vaccine: given Rhogam: na LARC form signed: declined movement and labor precautions reviewed. Problem list reviewed and updated with the most current plan of care details and appropriate orders placed. Relevant counseling for the gestational age provided. Continue routine care and follow up unless otherwise noted in visit notes/problem list details OB Flowsheet Initial Weight: Not Recorded Date -?-?-?-?-?-?-?-?-?-?-?-?- EGA Weight BP Urine Prot -?-?-?-?-?-?-?-?-?-?-?-?- Glucose FHR FuHt Pres Dilation -?-?-?-?-?-?-?-?-?-?-?-?- Effaced St Visit Note 06/04/22 -?-?-?-?-?-?-?-?-?-?-?-?- 11w 0d 158 lb 106/70 -?-?-?-?-?-?-?-?-?-?-?-?- 169 -?-?-?-?-?-?-?-?-?-?-?-?- JV- CRL off by a week. new devin given. 07/05/22 -?-?-?-?-?-?-?-?-?-?-?-?- 15w 3d 164 lb 6 oz 115/68 Nega tive -?-?-?-?-?-?-?-?-?-?-?-?- Negative 145 -?-?-?-?-?-?-?-?-?-?-?-?- JV- normal nater a. pt wants afp. 08/02/22 -?-?-?-?-?-?-?-?-?-?-?-?- 19w 3d 167 lb 110/73 -?-?-?-?-?-?-?-?-?-?-?-?- 140 -?-?-?-?-?-?-?-?-?-?-?-?- SM- no vb lof g ood fm no regualrctx 08/29/22 -?-?-?-?-?-?-?-?-?-?-?-?- 23w 2d 172 lb 6 oz 112/72 -?-?-?-?-?-?-?-?-?-?-?-?- 153 -?-?-?-?-?-?-?-?-?-?-?-?- JV-pt has a esthela inal placenta previa. will need rpt scan at 28 weeks. 09/26/22 -?-?-?-?-?-?-?-?-?-?-?-?- 27w 2d 180 lb 118/75 Negative -?-?-?-?-?-?-?-?-?-?-?-?- Negative 145 27 -?-?-?-?-?-?-?-?-?-?-?-?- SM- no vb lof go od fm no reuglar ctx 10/24/22 -?-?-?-?-?-?-?-?-?-?-?-?- 31w 2d 184 lb 106/66 Negative -?-?-?-?-?-?-?-?-?-?-?-?- Negative 124 30 -?-?-?-?-?-?-?-?-?-?-?-?- JV- no lof, vagi nal bleeding, or dec fm. ultrasound shows resolution of previa. needs tdap today. 11/08/22 -?-?-?-?-?-?-?-?-?-?-?-?- 33w 3d 187 lb 117/83 Negative -?-?-?-?-?-?-?-?-?-?-?-?- Negative 139 31 -?-?-?-?-?-?-?-?-?-?-?-?- JV- no lof, vagi nal bleeding, or dec fm. no complaints. 11/21/22 -?-?-?-?-?-?-?-?-?-?-?-?- 35w 2d 188 lb 7 oz 124/64 Nega tive -?-?-?-?-?-?-?-?-?-?-?-?- Negative 140 36 Cephalic -?-?-?-?-?-?-?-?-?-?-?-?- SM- no vb lof go od fm no regular ctx 11/26/22 -?-?-?-?-?-?-?-?-?-?-?-?- 36w 0d 190 lb 4 oz 108/64 Nega tive -?-?-?-?-?-?-?-?-?-?--?-?- Negative 153 36 Cephalic 2 -?-?-?-?-?-?-?-?-?-?-?-?- 50 -2 -No Vb, LOF or CTX. GBS done 12/05/22 -?-?-?-?-?-?-?-?-?-?-?-?- 37w 2d 191 lb 98/67 Negative -?-?-?-?-?-?-?-?-?-?-?-?- Negative 147 38 Cephalic 2 .5 -?-?-?-?-?-?-?-?-?-?-?-?- 80 -1 JV- no lof , vaginal bleeding, or dec fm. labor precautions discussed. 12/12/22 -?-?-?-?-?-?-?-?-?-?-?-?- 38w 2d 192 lb 4 oz 109/71 Nega tive -?-?-?-?-?-?-?-?-?-?-?-?- Negative 140 110 38 Cephalic 2.5 -?-?-?-?-?-?-?-?-?-?-?-?- 80 -1 SM- no vb lof good fm no regular ctx SM- no vb lof good fm no reg ular ctx unclear baseline- NST done 12/17/22 -?-?-?-?-?-?-?-?-?-?-?-?- 39w 0d 193 lb 2 oz 119/77 Nega tive -?-?-?-?-?-?-?-?-?-?-?-?- Negative 145 39 Cephalic 3 -?-?-?-?-?-?-?-?-?-?-?-?- 80 -1 JV- no lof ,vaginal bleeding ,or dec fm. 12/25/22 -?-?-?-?-?-?-?-?-?-?-?-?- 40w 1d 197 lb 8 oz 124/76 Nega tive -?-?-?-?-?-?-?-?-?-?-?-?- Negative 132 40 Cephalic 4 -?-?-?-?-?-?-?-?-?-?-?-?- 80 -1 -No VB, LOF or reg CTX. Membrane sweep. ROS Constitutional Constitutional: Reports systems reviewed and no addt'l complaints, except as documented Gastrointestinal Gastrointestinal: Denies bloating, constipation, cramping, diarrhea, nausea or vomiting Genitourinary Genitourinary: Reports other Details: Denies vaginal odor, vaginal bleeding, or vaginal discharge ; Denies difficulty urinating or flank pain NST FHR Rate Baby A Baseline: 140 Variability:: Moderate Accelerations:: 15 x 15 Decelerations:: None NST Reactive:: Yes FHR Category:: Category I Assessment & Plan (1) False labor at or after 37 completed weeks of gestation: PLAN: no change after several hours of monitoring. patient requested to be discharged to home Charges/Coding Multi Select Codes Urinary/Genital Urinary/Genital CPT Codes: 76942-36 non-stress test Interp
== END 2022-12-25 21:07 | disposition home or self-care (01) ==
LOC: WPOUT 18:30 → WP 18:30
PROVIDERS: PCP Family Medicine; Referring Provider Obstetrics & Gynecology; Visit Provider Obstetrics & Gynecology
DX: O47.1 False labor at or after 37 completed weeks of gestation (principal); Z3A.40 40 weeks gestation of pregnancy
CPT/HCPCS: 59025; 59050; 99221; G0378

== ENCOUNTER 2022-12-29 04:10 | Inpatient (IN) | payer OTHER, SELFPAY ==
[2022-12-25 18:44] VITALS: BMI 31.0
[2022-12-29] VITALS (29 sets, daily range): BP systolic 96–146; BP diastolic 55–85; PULSE 58–98; RESP 16; TEMP 36.1–36.9; O2SAT 90–100; BMI 31.4
[2022-12-29] MEDS: LACTATED RINGERS 500 ML 999 ML IV (04:20)
--- NOTE | 2022-12-29 04:34 | HP.PCM.OB_ITS ---
HPI - General General Date of Admission: 12/29/22 HPI Narrative MICAELA LANGFORD, is a 32 @ 40 weeks 5 days who presents to L&D at 8 cm dilated. She has had an uncomplicated . Maternal Data Information DEVIN Calculator Estimated Delivery Date Method Current WG Current Estimate 12/24/22 Ultrasound #1 40w 5d Other Estimates 12/30/22 LMP (Certain) 39w 6d [facility] Medical History Anxiety Congestion of nasal sinus Cough COVID-19 virus not detected Influenza vaccine administered Spontaneous Home Medications multivitamin no.47-iron fum 27 mg-folate no.1 1 mg-dha 300 mg capsule (PNV-DHA) 1 cap PO DAILY 05/28/22 [History Last Taken 12/28/22] sertraline 100 mg tablet (Zoloft) 100 mg PO DAILY anxiety 12/25/22 [History Last Taken 12/28/22] Allergy/AdvReac Type Severity Reaction Status Date / Time penicillin G Allergy Mild Hives Verified 12/25/22 11:45 Family History Father Diabetes Surgical History H/O dilation and curettage H/O knee surgery Social History adopted: No household members: spouse and children housing: house number of children: 2 current occupational status: employed 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 pets and animals: Yes pets and animals: dog(s) history of recent travel: No sexually active: Yes Smoking Status: Never smoker second hand exposure: No alcohol intake: never substance use type: does not use well-balanced diet: daily or most days caffeine: Yes Type: other Number of servings: 1 eating out: rarely or never during the past year weight has: remained stable what type of physical activity do you participate in: walking, bicycling and swimming frequency: 5-6 times per week duration: 45-60 minutes/day katie/nondenominational: Church seatbelt use: always do you feel safe at home: Yes additional social history: [employer] 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 Date Name GA/Weeks Outcome Route Bth Weight Gen Labor Lgth Anes the al Geovany Naifsilvestrecasper Provider FOB Unknown 09/24/2017 Yoan 38 live - full term 8 Mal e epidural Opdyke DEBBY 08/07/20 Ariana 40 live - full term Female [employer] Marcanthony Delivery Date: Last Updated by: Debbie Pelaez Visit Details Expected Delivery Route/Plan Labor Preferences- labor support person: Sukhjinder labor intervention preferences: none pain management options preferred: epidural cut cord/dad catch: yes : yes PP control planned: [] discussed possible routes of delivery and associated risks: [] special requests: [] Plans Covid status: discussed Flu vaccine: discussed Tdap vaccine: given Rhogam: na LARC form signed: declined movement and labor precautions reviewed. Problem list reviewed and updated with the most current plan of care details and appropriate orders placed. Relevant counseling for the gestational age provided. Continue routine care and follow up unless otherwise noted in visit notes/problem list details OB Flowsheet Initial Weight: Not Recorded Date -?-?-?-?-?-?-?-?-?-?-?-?- EGA Weight BP Urine Prot -?-?-?-?-?-?-?-?-?-?-?-?- Glucose FHR FuHt Pres Dilation -?-?-?-?-?-?-?-?-?-?-?-?- Effaced St Visit Note 06/04/22 -?-?-?-?-?--?-?-?-?-?-?-?- 11w 0d 158 lb 106/70 -?-?-?-?-?-?-?-?-?-?-?-?- 169 -?-?-?-?-?-?-?-?-?-?-?-?- JV- CRL off by a week. new devin given. 07/05/22 -?-?-?-?-?-?-?-?-?-?-?-?- 15w 3d 164 lb 6 oz 115/68 Nega tive -?-?-?-?-?-?-?-?-?-?-?-?- Negative 145 -?-?-?-?-?-?-?-?-?-?-?-?- JV- normal christine ayon pt wants afp. 08/02/22 -?-?-?-?-?-?-?-?-?-?-?-?- 19w 3d 167 lb 110/73 -?-?-?-?-?-?-?-?-?-?-?-?- 140 -?-?-?-?-?-?-?-?-?-?--?-?- SM- no vb lof g ood fm no regualrctx 08/29/22 -?-?-?-?-?-?-?-?-?-?-?-?- 23w 2d 172 lb 6 oz 112/72 -?-?-?-?-?-?-?-?-?-?-?-?- 153 -?-?-?-?-?-?-?-?-?-?-?-?- JV-pt has a esthela inal placenta previa. will need rpt scan at 28 weeks. 09/26/22 -?-?-?-?-?-?-?-?-?-?-?-?- 27w 2d 180 lb 118/75 Negative -?-?-?-?-?-?-?-?-?-?-?-?- Negative 145 27 -?-?-?-?-?-?-?-?-?-?-?-?- SM- no vb lof go od fm no reuglar ctx 10/24/22 -?-?-?-?--?-?-?-?-?-?-?-?- 31w 2d 184 lb 106/66 Negative -?-?-?-?-?-?-?-?-?-?-?-?- Negative 124 30 -?-?-?-?-?-?-?-?-?-?-?-?- JV- no lof, vagi nal bleeding, or dec fm. ultrasound shows resolution of previa. needs tdap today. 11/08/22 -?-?-?-?-?-?-?-?-?-?-?-?- 33w 3d 187 lb 117/83 Negative -?-?-?-?-?-?-?-?-?-?-?-?- Negative 139 31 -?-?-?-?-?-?-?-?-?-?-?-?- JV- no lof, vagi nal bleeding, or dec fm. no complaints. 11/21/22 -?-?-?-?-?-?-?-?-?-?-?-?- 35w 2d 188 lb 7 oz 124/64 Nega tive -?-?-?-?-?-?-?-?-?-?-?-?- Negative 140 36 Cephalic -?-?-?-?-?-?-?-?-?-?-?-?- SM- no vb lof go od fm no regular ctx 11/26/22 -?-?-?-?-?-?-?-?-?-?-?-?- 36w 0d 190 lb 4 oz 108/64 Nega tive -?-?-?-?-?-?-?-?-?-?-?-?- Negative 153 36 Cephalic 2 -?-?-?-?-?-?-?-?-?-?-?-?- 50 -2 MH-No Vb, LOF or CTX. GBS done 12/05/22 -?-?-?-?-?-?-?-?-?-?-?-?- 37w 2d 191 lb 98/67 Negative -?-?-?-?-?-?-?-?-?-?-?-?- Negative 147 38 Cephalic 2 .5 -?-?-?-?-?-?-?-?-?-?-?-?- 80 -1 JV- no lof , vaginal bleeding, or dec fm. labor precautions discussed. 12/12/22 -?-?-?-?-?-?-?-?-?-?-?-?- 38w 2d 192 lb 4 oz 109/71 Nega tive -?-?-?-?-?-?-?-?-?-?-?-?- Negative 140 110 38 Cephalic 2.5 -?-?-?-?-?-?-?-?-?-?-?-?- 80 -1 SM- no vb lof good fm no regular ctx SM- no vb lof good fm no reg ular ctx unclear baseline- NST done 12/17/22 -?-?-?-?-?-?-?-?-?-?-?-?- 39w 0d 193 lb 2 oz 119/77 Nega tive -?-?-?-?-?-?-?-?-?-?-?-?- Negative 145 39 Cephalic 3 -?-?-?-?-?-?-?-?-?-?-?-?- 80 -1 JV- no lof ,vaginal bleeding ,or dec fm. 12/25/22 -?-?-?-?-?--?-?-?-?-?-?-?- 40w 1d 197 lb 8 oz 124/76 Nega tive -?-?-?-?-?-?-?-?-?-?-?-?- Negative 132 40 Cephalic 4 -?-?-?-?-?-?-?-?-?-?-?-?- 80 -1 -No VB, LOF or reg CTX. Membrane sweep. ROS Constitutional Constitutional: Denies change in weight, fatigue, fever(s), headache(s), poor appetite or weakness Eyes Eyes: Denies blurry vision, change in vision, seeing flashes or spots in vision ENT HEENT: Denies dizziness, headache(s), loss taste/smell or sore throat Cardiovascular Cardiovascular: Denies chest pain, dizziness, dyspnea, irregular heart rhythm, leg edema, palpitations, rapid heart rate or vomiting Respiratory/Chest Respiratory/Chest: Denies chest tightness, cough, dyspnea or breast pain Gastrointestinal Gastrointestinal: Denies abdominal pain, anorexia, constipation, cramping, diarrhea, hemorrhoids, vomiting or weight changes Genitourinary Genitourinary: Denies dysuria, flank pain, genital lesions, genital pain, urinary frequency or urinary urgency Musculoskeletal Musculoskeletal: Denies back pain, difficulty walking, joint pain, limited range of motion, muscle cramps or numbness Integumentary Integumentary: Denies lesions or unusual bruising Neurologic Neurologic: Denies abnormal movements, abnormal speech, dizziness, numbness, seizure-like activity or syncope Psychiatric Psychiatric: Denies anxiety, behavioral changes, change in appetite, change in libido, cognitive impairment, confusion, depression, difficulty concentrating, hallucinations or suicidal thoughts Endocrine Endocrinology: Denies excessive sweating, polydipsia or polyuria Hematologic/Lymphatic Hematologic/Lymphatic: Denies easy bleeding, easy bruising or lymphadenopathy Allergic/Immunologic Allergic/Immunologic: Denies itchy eyes, lip swelling, seasonal rhinorrhea, rhinitis, throat swelling, tongue swelling, eczemia, wheezing or asthma Vital Signs Vital Signs Vital Signs: 12/29/22 04:21 12/29/22 04:22 12/29/22 04:22 Temperature 97.0 F L Pulse Rate 58 L Blood Pressure 146/85 H BP Systolic 146 BP Diastolic 85 Weight Weight: 200 lb 9.93 oz Body Mass Index (BMI) 31.4 Physical Exam Const alert, oriented x3, no apparent distress and healthy appearing General Appearance: cooperative; Negative for anxious HEENT normocephalic Face and Sinus: normal facial exam Eyes EOMs intact bilaterally and no scleral icterus General Eye: normal appearance of both eyes Neck full ROM and supple Lymph Lymphatic: no lymphadenopathy noted Chest Chest: abnormal inspection of the chest Resp normal respiratory effort Effort and Inspection: able to speak in complete sentences Cardio regular rate GI soft to palpation and non-tender Inspection: gravid Palpation: soft; Negative for tender external exam normal Back/Spine no CVA tenderness Extremity normal to inspection, full ROM and no clubbing, cyanosis or edema General Extremity: Negative for calf tenderness or edema Skin Lesions: no lesions Rashes: no rashes Psych mental status grossly normal Labs Labs Labs: Blood Type O POSITIVE Antibody Screen NEGATIVE Hct 38.0 % (37-47) Hgb 12.5 g/dL (12.0-15.0) Obstetrics Syphilis Total Ab Non-reactive VZV IgG Antibody 1.29 index (Immune >1.09-) Rubella IgG Antibody Reactive (Nonreactive) Hep Bs Antigen Non-Reactive (Nonreactive) Chlamydia DNA (KAYLI) Negative (Negative) Neisseria gonorrhoeae DNA (KAYLI) Negative (Negative) HIV 1&2 Antibody Non-Reactive (Nonreactive) Glucose 1 Hr 50 gm 107 mg/dL (70-140) Group B Strep DNA Negative (Negative) Rhogam given: No Miscellaneous Test Assessment & Plan (1) Anxiety: COMMENT: related to previous SAB. Declines medication (2) Scoliosis: QUALIFIERS: Scoliosis type: idiopathic Idiopathic scoliosis type: other Spinal region: thoracolumbar Qualified Code(s): M41.25 - Other idiopathic scoliosis, thoracolumbar region COMMENT: left (3) : QUALIFIERS: Weeks of gestation: 39 weeks Qualified Code(s): Z3A.39 - 39 weeks gestation of COMMENT: Neg GBS NIPT low risk, nl afp. declined carrier testing. nl anatomy US. (4) Supervision of high risk , antepartum: COMMENT: PRR , DEVIN 12/30/22 boy PC Ariana Milton, Sukhjinder (5) False labor at or after 37 completed weeks of gestation: PLAN: Plan Patient presents IAL, plan expectant management for , pitocin/AROM PRN if needed. Pain management: plans epidural, however it does not appear there will be time for one. will offer Nitrous gas. GBS negative . Management of any complications: none I have reviewed the [facility] and made any clinically relevant updates.
[2022-12-29 04:35] LABS: Absolute Lymphocyte Count 3.17 X10^3/uL (0.83-4.51); Absolute Neutrophil Count 4.2 X10^3/uL (2.0-7.7); Basophil# 0.05 X10^3/uL; Basophil% 0.6 % (0-1); Eosinophil# 0.09 X10^3/uL; Eosinophils% 1.1 % (0-5); Hematocrit 37.2 % (37-47); Lymphocyte # 3.17 X10^3/ul (0.83-4.51); Mean Corp Hgb Conc 32.3 g/dL (32-36); Mean Corpuscular Hgb 28.2 pg (27.0-32.0); Mean Corpuscular Volume 87.5 fL (81-99); Mean Platelet Vol. 9.9 fl (6.2-12.0); Monocyte# 1.05 X10^3/uL; Monocyte% 12.3 % (0-10); NRBC Flagged by Analyzer 0 % (0-5); Neutrophil # 4.16 X10^3/uL (2.7-7.7); Neutrophil % 48.4 % (47-70); Platelet Count 186 K/mm3 (150-450); RBC Distribution Width CV 13.2 % (11.6-14.6); RBC Distribution Width SD 41.4 fl (35.1-43.9); Red Blood Count 4.25 M/mm3 (4.2-5.4); White Blood Count 8.6 K/mm3 (4.4-11.0)
[2022-12-29] MEDS: Lactated Ringers 1,000 ML 200 ML IV (04:50)
[2022-12-29] MEDS: Oxytocin 10 UNITS/ML Vial IM (05:36)
--- NOTE | 2022-12-29 05:51 | EX.PCM.OBRPT ---
Assessment & Plan (1) : QUALIFIERS: Weeks of gestation: 39 weeks Qualified Code(s): Z3A.39 - 39 weeks gestation of COMMENT: Neg GBS NIPT low risk, nl afp. declined carrier testing. nl anatomy US. (2) Supervision of high risk , antepartum: COMMENT: PRR , DEVIN 12/30/22 boy PC Ariana Milton, Sukhjinder Maternal Data Information DEVIN Calculator Estimated Delivery Date Method Current WG Current Estimate 12/24/22 Ultrasound #1 40w 5d Other Estimates 12/30/22 LMP (Certain) 39w 6d Final DEVIN: 12/24/22 Gestational age: 40 weeks 5 days [place] Doctor Who Attended Delivery: Artiniacasper,Farhan Vaginal Delivery Maternal Presentation Maternal Presentation: Active Labor Type of Induction: Amniotomy Operative Information Date of Procedure: 12/29/22 Pre-Operative Diagnosis: 32 y/o @ 40 weeks 5 days, meconium fluid, active labor Post-Operative Diagnosis: 32 y/o @ 40 weeks 5 days, meconium fluid, active labor, shoulder dystocia Surgery / Procedure Performed: Spontaneous Vaginal Delivery Type of Anesthesia: None Estimated Blood Loss: 100cc Findings Description of Procedure: Patient began pushing and delivered the head in the RACHELE presentation. The head was delivered atraumatically and the anterior shoulder was not delivering easily. McRobert's maneuver, followed by suprpubic pressure, follwed by posterior arm delivery eventually resulted in delivery of the anterior and posterior shoulders. The dystocia took 30 seconds total. The was placed on the maternal abdomen. Delayed cord clamping was employed for approximately 60 seconds. Cord was clamped and cut and gentle traction was applied to the cord and the placenta delivered spontaneously immediately following it was noted to be intact with three-vessel cord. The perineum and vagina were inspected and noted to have a 1st degree laceration, repaired with a 2-0 vicryl. . EBL was 100 cc. Patient and tolerated delivery well. Baby Boy Pito Presentation: Vertex Amniotic Membrane Rupture Type: Spontaneous Amniotic Fluid Description: Moderate meconium Placental Delivery Description: Spontaneous Placenta Disposition: [facility] Cord Vessel Description: 3 Vessels Cord Entanglement: None A Gender: Male (1 minute): 8 (5 minute): 9 Delayed Cord Clamping: Yes Post Vaginal Delivery Medications Given After Delivery: IV Pitocin Episiotomy Description: None Laceration: 1st degree Complication Complications: None Multi Select Codes Urinary/Genital Urinary/Genital CPT Codes: 85037 Vaginal Delivery [facility]
--- NOTE | 2022-12-29 05:55 | DCINST_ITS ---
Discharge Instructions Diet Discharge Diet: No restrictions Activity Discharge Activity: Return to Normal Activity, May Not Drive (while taking narcotic pain medications.) and May Shower May resume sexual activity in: 4-6 weeks Dressing / Incision Call your doctor if your incision/area has: Continuous Slow Oozing, Sudden Increased Bleeding, Increased Pain/ Swelling, Increased Redness and Foul Smelling Discharge Follow Up Care Please Follow Up With: Surekha Cuenca DO When: Call [phone] to make an appointment with your doctor in 6 weeks. If you had elevated blood pressure or 4th degree laceration, you will need to be seen in 2 weeks. Test Results: Test results from this visit will be discussed in further detail at your follow- up appointment, if applicable. Discharge Plan Admission Admit Date/Time: 12/29/22 04:10 Attending Provider: Surekha Cuenca Primary Care Provider: Ronald Michael Discharge Orders/Prescriptions Prescriptions: No Action PNV-DHA 27 mg iron-1 mg -300 mg capsule 1 cap PO DAILY sertraline [Zoloft] 100 mg tablet 100 mg PO DAILY Referrals / Follow Up: Ronald Michael DO [Primary Care Provider] -
[2022-12-29 06:12] LABS: Syphilis Antibodies Non-reactive
[2022-12-29] MEDS: Ondansetron ODT 4 MG Tablet PO (06:18)
[2022-12-29] MEDS: Morphine 4 MG/ML Syringe IM (06:19)
[2022-12-29] MEDS: Acetaminophen 500 MG Tablet PO (09:20)
[2022-12-29] MEDS: Naproxen 500 MG Tablet PO (15:56)
[2022-12-29] MEDS: Acetaminophen 500 MG Tablet 1000 MG PO (19:55)
[2022-12-29] MEDS: Sertraline 100 MG Tablet PO (21:25)
[2022-12-30 00:28] VITALS: BP 113/72; PULSE 88; RESP 16; TEMP 36.6; O2SAT 99
[2022-12-30 04:00] VITALS: BP 104/52; PULSE 69; RESP 14; TEMP 36.4; O2SAT 100
[2022-12-30 08:29] VITALS: BP 110/72; PULSE 88; RESP 17; TEMP 35.9; O2SAT 97
--- NOTE | 2022-12-30 08:43 | PCM.PN.OB ---
Subjective Subjective Patient doing well without complaints. Tolerating PO. Ambulating and voiding without difficulty. Feeding well. Denies chest pain, shortness of breath, calf pain/swelling, fevers, chills, lightheadedness. Objective Data Objective Data Vital Signs: Vital Signs Temp Pulse Resp BP Pulse Ox O2 Del Method 96.7 F L 88 17 110/72 97 Room Air 12/30/22 08:29 12/30/22 08:29 12/30/22 08:29 12/30/22 08:29 12/30/22 08:29 12/30/22 08:29 Oxygen Delivery Method Room Air Weight: 200 lb 9.93 oz Body Mass Index (BMI) 31.4 Intake & Output: Intake and Output for Last 24 Hours 12/28/22 12/29/22 12/30/22 23:59 23:59 23:59 Intake Total 622.83 / 622.83 Output Total 100 / 100 Balance 522.83 / 522.83 Lab / Micro Data Result Diagrams: 12/29/22 04:20 Physical Exam Const alert and no apparent distress Lymph Lymphatic: no lymphadenopathy noted Chest inspection of chest normal Nipple/Areola: nipples/areola normal Resp normal respiratory effort and no retractions Cardio regular rate GI GI Narrative: fundus firm, 1 below u. lochia rubra. no clots. Extremity normal to inspection and full ROM Skin no rashes or lesions noted Psych mental status grossly normal Assessment & Plan (1) (spontaneous vaginal delivery): COMMENT: IAL. . alana JV (2) Anxiety: COMMENT: related to previous SAB. Declines medication PLAN: Plan s/p PPD # 1 1. routine post delivery care 2. breast feeding- support given 3. rh positive 4. rubella immune 5. d/c home today
== END 2022-12-30 11:25 | disposition home or self-care (01) | DRG 807 ==
LOC: WP 04:10 → WPOUT 04:11 → WP 04:11
PROVIDERS: Admitting Provider Obstetrics & Gynecology; PCP Family Medicine; Visit Provider Obstetrics & Gynecology
DX: O99.892 Other specified diseases and conditions complicating childbirth (principal); Z37.0 Single live birth; M41.25 Other idiopathic scoliosis, thoracolumbar region; F41.9 Anxiety disorder, unspecified; M41.9 Scoliosis, unspecified; O70.0 First degree perineal laceration during delivery; O77.0 Labor and delivery complicated by meconium in amniotic fluid; O99.344 Other mental disorders complicating childbirth; Z3A.40 40 weeks gestation of pregnancy; Z79.899 Other long term (current) drug therapy; O66.0 Obstructed labor due to shoulder dystocia
CPT/HCPCS: 59025; 59050; 85025; 86780; 86850; 86900; 86901; 99221; J7120; G0378

== ENCOUNTER → 2024-03-24 | Outpatient (CLI) | payer OTHER, SELFPAY ==
[2024-03-29 10:07] LABS: HPV APTIMA, High Risk Negative (Negative)
== END | disposition home or self-care (01) ==
PROVIDERS: PCP Family Medicine; Referring Provider Nurse Practitioner Family; Visit Provider Nurse Practitioner Family
DX: Z01.419 Encounter for gynecological examination (general) (routine) without abnormal findings (principal)
CPT/HCPCS: 87624; 88175; G0145

== ENCOUNTER → 2024-06-15 | Outpatient (CLI) | payer OTHER, SELFPAY ==
[2024-06-15 15:32] LABS: Estradiol 63.1 pg/mL; Follicle Stimulating Hormone 4.3 mIU/mL; Luteinizing Hormone 5.8 mIU/mL; T4 Free Direct 0.77 ng/dL (0.76-1.46)
[2024-06-17 08:13] LABS: PROGESTERONE 4.8 ng/mL (.)
== END | disposition home or self-care (01) ==
LOC: BFHLAB 11:40
PROVIDERS: PCP Family Medicine; Referring Provider Family Medicine; Visit Provider Family Medicine
DX: R60.9 Edema, unspecified (principal); N92.1 Excessive and frequent menstruation with irregular cycle; R23.2 Flushing
CPT/HCPCS: 36415; 82627; 82670; 83001; 83002; 84144; 84403; 84439; 84443; 82626

== ENCOUNTER → 2024-07-02 | Outpatient (CLI) | payer OTHER, SELFPAY ==
--- NOTE | 2024-07-02 08:03 | CT_ITS ---
STUDY: CT ABDOMEN AND PELVIS WITH CONTRAST REASON FOR EXAM: Female, 33 years old. ABD BLOATING RADIATION DOSAGE (If Supplied By Facility): CTDIvol = ( 13.02 ) mGy, DLP = ( 726.38 ) mGycm TECHNIQUE: Transaxial images were obtained from the dome of the diaphragm to the symphysis pubis with oral contrast. Oral and amp; IV Readi-CAT and amp; 100mL Isovue-300 was administered. Sagittal and coronal images were reconstructed. Individualized dose optimization techniques were used for this CT. COMPARISON: None. FINDINGS: The visualized lung bases are unremarkable. The visualized portions of the heart are within normal limits. Normal liver. Normal gallbladder and extrahepatic biliary system. Normal spleen. Normal pancreas. Normal bilateral adrenal glands. Normal right kidney. Normal left kidney. Normal visualized stomach. Normal small intestine. Moderate amount of fecal material is seen in the colon. The appendix is visualized and appears normal. Normal abdominal aorta. Normal inferior vena cava. Normal retroperitoneum. Normal urinary bladder. Normal abdominal wall. Normal osseous structures. CT/Abdomen/Pelvis WITH Contrast IMPRESSION: Normal enhanced CT of the abdomen and pelvis. Electronically Signed: Dmitry Bello MD at 9:57 EST ,
== END | disposition home or self-care (01) ==
LOC: CT 07:59
PROVIDERS: PCP Family Medicine; Referring Provider Family Medicine; Visit Provider Family Medicine
DX: R14.0 Abdominal distension (gaseous) (principal)
CPT/HCPCS: 74177; Q9967

== ENCOUNTER → 2025-01-31 | Outpatient (CLI) | payer OTHER, SELFPAY | END | disposition home or self-care (01) | LOC: LABSPEC 15:00 | PROVIDERS: PCP Family Medicine; Referring Provider Otolaryngology Otolaryngology/Facial Plastic Surgery; Visit Provider Otolaryngology Otolaryngology/Facial Plastic Surgery | DX: J32.9 Chronic sinusitis, unspecified (principal) | CPT/HCPCS: 87070; 87205 ==